=== PATIENT | male | born 1930 | race Caucasian/White ===

== ENCOUNTER 2019-02-11 09:43 | Inpatient (IN) | payer MEDICARE, BC ==
[2019-02-11] MEDS ORDERED: SODIUM CHLORIDE 0.9% 500 ML 500 ML IV STA (10:13)
--- NOTE | 2019-02-11 10:16 | ED ---
General Adult HPI - General Chief complaint: Wound/Laceration Stated complaint: wound care Time Seen by Provider: 02/11/19 10:05 Source: patient, family, EMS Mode of arrival: EMS Limitations: physical limitation - History of Present Illness Initial comments: Patient presents with generalized weakness. His states that he has been getting especially weak over the last couple days. He is able to walk anymore. She cannot take care of him. He has been having altered mental status. Nothing makes his symptoms better or worse. He has taken no specific medication to help with the symptoms. He has had no sick contacts or travel. - Related Data Home Medications Medication Instructions Recorded Confirmed Ezetimibe [Zetia] 10 mg PO DAILY 06/11/15 06/11/15 Ibuprofen [Motrin] 800 mg PO TID PRN 06/11/15 06/11/15 Levothyroxine Sodium [Synthroid] 75 mcg PO DAILY 06/11/15 06/11/15 Multivitamins, Thera [Multivitamin 1 tab PO DAILY 06/11/15 06/11/15 (formulary)] Previous Rx's Medication Instructions Recorded Meclizine [Antivert] 12.5 mg PO QID PRN #90 tab 06/14/15 Allergies Allergy/AdvReac Type Severity Reaction Status Date / Time No Known Allergies Allergy Verified 02/11/19 09:59 Review of Systems ROS Statement: Those systems with pertinent positive or pertinent negative responses have been documented in the HPI. ROS Other: All systems not noted in ROS Statement are negative. Past Medical History Past Medical History: Chest Pain / Angina, COPD, GERD/Reflux, Hyperlipidemia, Osteoarthritis (OA), Pneumonia, Thyroid Disorder Additional Past Medical History / Comment(s): tinnitus rt ear,constipation, broken nose in past. pt is dutch,thick accent.stated able to read and write but korean reading/writing not so good,able to do some. History of Any Multi-Drug Resistant Organisms: None Reported Past Surgical History: Orthopedic Surgery Additional Past Surgical History / Comment(s): hydrocele, lt knee arthroscopic, benign tumor removed from back, cyst removed lt foot Past Anesthesia/Blood Transfusion Reactions: No Reported Reaction Past Psychological History: No Psychological Hx Reported Smoking Status: Never smoker Past Alcohol Use History: Rare Past Drug Use History: None Reported - Past Family History Father History Unknown: Yes Mother History Unknown: Yes General Exam Limitations: altered mental status, physical limitation General appearance: lethargic Head exam: Present: atraumatic Eye exam: Present: normal appearance Pupils: Present: normal accommodation ENT exam: Present: normal exam Neck exam: Present: normal inspection Respiratory exam: Present: normal lung sounds bilaterally Cardiovascular Exam: Present: systolic murmur GI/Abdominal exam: Present: soft. Absent: tenderness Extremities exam: Present: normal inspection. Absent: tenderness Back exam: Absent: tenderness Neurological exam: Present: alert Psychiatric exam: Present: depressed Skin exam: Present: warm, other (There is no abnormal growth on the right shoulder) Course Vital Signs 02/11/19 09:50 Temperature 98.0 F Pulse Rate 85 Respiratory 18 Rate Blood Pressure 129/69 O2 Sat by Pulse 96 Oximetry EKG Findings - EKG Comments: EKG Findings:: Twelve-lead EKG shows ventricular rate 93 bpm, normal OH interval, there is a right bundle branch block, there are no ST elevation or depression, interpreted by me as normal sinus rhythm. Medical Decision Making - Medical Decision Making Patient has a multifocal pneumonia on chest x-ray. I ordered IV antibiotics. Patient will be admitted to the hospital. - Lab Data Result diagrams: 02/11/19 10:45 02/11/19 10:45 Lab Results 02/11/19 02/11/19 02/11/19 Range/Units 10:45 10:45 10:45 WBC 10.3 (3.8-10.6) k/uL RBC 4.34 (4.30-5.90) m/uL Hgb 11.3 L (13.0-17.5) gm/dL Hct 35.4 L (39.0-53.0) % MCV 81.6 (80.0-100.0) fL MCH 26.0 (25.0-35.0) pg MCHC 31.8 (31.0-37.0) g/dL RDW 15.5 (11.5-15.5) % Plt Count 270 (150-450) k/uL Neutrophils % 75 % Lymphocytes % 13 % Monocytes % 6 % Eosinophils % 3 % Basophils % 0 % Neutrophils # 7.7 (1.3-7.7) k/uL Lymphocytes # 1.4 (1.0-4.8) k/uL Monocytes # 0.6 (0-1.0) k/uL Eosinophils # 0.4 (0-0.7) k/uL Basophils # 0.0 (0-0.2) k/uL Hypochromasia Slight PT (9.0-12.0) sec INR (<1.2) Sodium 141 (137-145) mmol/L Potassium 3.4 L (3.5-5.1) mmol/L Chloride 103 (98-107) mmol/L Carbon Dioxide 28 (22-30) mmol/L Anion Gap 10 mmol/L BUN 29 H (9-20) mg/dL Creatinine 0.97 (0.66-1.25) mg/dL Est GFR (CKD-EPI)AfAm 81 (>60 ml/min/1.73 sqM) Est GFR (CKD-EPI)NonAf 70 (>60 ml/min/1.73 sqM) Glucose 95 (74-99) mg/dL Plasma Lactic Acid Quincy 2.9 H* (0.7-2.0) mmol/L Calcium 11.1 H (8.4-10.2) mg/dL Total Bilirubin 1.1 (0.2-1.3) mg/dL AST 40 (17-59) U/L ALT 23 (21-72) U/L Alkaline Phosphatase 96 (38-126) U/L Ammonia 10 (<30) umol/L Creatine Kinase 39 L (55-170) U/L Total Protein 6.7 (6.3-8.2) g/dL Albumin 3.2 L (3.5-5.0) g/dL 02/11/19 Range/Units 10:45 WBC (3.8-10.6) k/uL RBC (4.30-5.90) m/uL Hgb (13.0-17.5) gm/dL Hct (39.0-53.0) % MCV (80.0-100.0) fL MCH (25.0-35.0) pg MCHC (31.0-37.0) g/dL RDW (11.5-15.5) % Plt Count (150-450) k/uL Neutrophils % % Lymphocytes % % Monocytes % % Eosinophils % % Basophils % % Neutrophils # (1.3-7.7) k/uL Lymphocytes # (1.0-4.8) k/uL Monocytes # (0-1.0) k/uL Eosinophils # (0-0.7) k/uL Basophils # (0-0.2) k/uL Hypochromasia PT 11.6 (9.0-12.0) sec INR 1.1 (<1.2) Sodium (137-145) mmol/L Potassium (3.5-5.1) mmol/L Chloride (98-107) mmol/L Carbon Dioxide (22-30) mmol/L Anion Gap mmol/L BUN (9-20) mg/dL Creatinine (0.66-1.25) mg/dL Est GFR (CKD-EPI)AfAm (>60 ml/min/1.73 sqM) Est GFR (CKD-EPI)NonAf (>60 ml/min/1.73 sqM) Glucose (74-99) mg/dL Plasma Lactic Acid Quincy (0.7-2.0) mmol/L Calcium (8.4-10.2) mg/dL Total Bilirubin (0.2-1.3) mg/dL AST (17-59) U/L ALT (21-72) U/L Alkaline Phosphatase (38-126) U/L Ammonia (<30) umol/L Creatine Kinase (55-170) U/L Total Protein (6.3-8.2) g/dL Albumin (3.5-5.0) g/dL Disposition Clinical Impression: Weakness, Pneumonia Disposition: ADMITTED IP TO THIS [facility] Condition: Serious Is patient prescribed a controlled substance at d/c from ED?: No Referrals: Ravinder Davis MD [Primary Care Provider] - 1-2 days
--- NOTE | 2019-02-11 11:14 | CT ---
EXAMINATION TYPE: CT brain wo con DATE OF EXAM: 02/11/2019 COMPARISON: 06/11/2015 HISTORY: Weakness and fatigue CT DLP: 1129.4 mGycm Automated exposure control for dose reduction was used. FINDINGS: There is no acute intracranial hemorrhage, mass effect, or midline shift identified. Generalized mild to moderate degenerative change noted. Intracranial atherosclerotic changes are noted. There is low- attenuation in the white matter bilaterally which is nonspecific. Changes of chronic sinusitis noted. Partially empty sella turcica. IMPRESSION: No acute intracranial hemorrhage, mass effect, or midline shift is seen.
[2019-02-11 11:26] LABS: Basophils % (A) 0 %; Eosinophils # (A) 0.4 k/uL (0-0.7); Eosinophils % (A) 3 %; HCT 35.4 % (39.0-53.0); HGB 11.3 gm/dL (13.0-17.5); Hypochromasia Slight; Lymphocytes # (A) 1.4 k/uL (1.0-4.8); Lymphocytes % (A) 13 %; MCHC 31.8 g/dL (31.0-37.0); MCV 81.6 fL (80.0-100.0); Mean Platelet Volume 8.4; Monocytes # (A) 0.6 k/uL (0-1.0); Monocytes % (A) 6 %; Neutrophils # (A) 7.7 k/uL (1.3-7.7); Neutrophils % (A) 75 %; Platelet Count 270 k/uL (150-450); RBC 4.34 m/uL (4.30-5.90); RDW 15.5 % (11.5-15.5); WBC 10.3 k/uL (3.8-10.6)
[2019-02-11 11:32] LABS: Albumin 3.2 g/dL (3.5-5.0); Calcium 11.1 mg/dL (8.4-10.2); Potassium 3.4 mmol/L (3.5-5.1); Total Bilirubin 1.1 mg/dL (0.2-1.3); Total Protein 6.7 g/dL (6.3-8.2)
--- NOTE | 2019-02-11 11:34 | XR ---
EXAMINATION TYPE: XR chest 1V portable DATE OF EXAM: 02/11/2019 COMPARISON: 06/11/2015 HISTORY: Shortness of breath TECHNIQUE: Single frontal view of the chest is obtained. FINDINGS: New large area of consolidation left upper lobe. By basilar consolidation small effusion. No pneumothorax. Arthropathy of the shoulders. IMPRESSION: Bibasilar infiltrate and small effusion with large area of consolidation left upper lobe . Correlate for pneumonia. Underlying neoplasm not excluded
[2019-02-11 11:35] LABS: Lactic Acid, Venous 2.9 mmol/L (0.7-2.0)
[2019-02-11] MEDS ORDERED: AZITHROMYCIN 500 MG in SODIUM CHLORIDE 0.9% 250 ML IVPB STA (11:50)
[2019-02-11 11:55] LABS: INR 1.1 (<1.2); Prothrombin Time 11.6 sec (9.0-12.0)
[2019-02-11] MEDS ORDERED: DOCUSATE 100 MG CAP PO PRN (12:04)
[2019-02-11] MEDS ORDERED: NALOXONE 0.4 MG/ML 1 ML VIAL IV PRN (12:04)
[2019-02-11] MEDS ORDERED: ONDANSETRON 4 MG/2 ML VIAL IVP PRN (12:04)
[2019-02-11] MEDS ORDERED: MAG HYDROX/AL HYDROX/SIMETH 30 ML CUP PO PRN (12:04)
[2019-02-11] MEDS ORDERED: TEMAZEPAM 15 MG CAP PO PRN (12:04)
[2019-02-11] MEDS ORDERED: traMADol 50 MG TAB PO PRN (12:04)
[2019-02-11] MEDS ORDERED: MECLIZINE 12.5 MG TAB PO PRN (12:05)
[2019-02-11] MEDS ORDERED: IPRATROPIUM-ALBUTEROL 3 ML NEB INHALATION PRN (12:35)
[2019-02-11] MEDS ORDERED: Potassium Replacement Protocol 1 EACH MISC MISCELLANE PRN (12:36)
--- NOTE | 2019-02-11 12:59 | P.HPIM ---
History of Present Illness H&P Date: 02/11/19 Chief Complaint: Increased weakness This is an 88-year-old male patient who presented to the hospital with complaints of generalized weakness with increased altered mental status changes. Patient does report he's had a cough over the past few days patient is a poor historian. No family at bedside. History obtained from records. Patient does have past medical history of chest pain, COPD, GERD, hyperlipidemia, osteoarthritis, pneumonia thyroid disorder. Patient also has abnormal growths to right shoulder with drainage. Patient reports he's had this for [address] completed showing no acute intracranial hemorrhage, mass effect or midline shift seen. Chest x-ray completed showing bibasilar infiltrate and small effusion with large area of consolidation left upper lobe. Correlate for pneumonia underlying neoplasm not excluded. Patient started on Rocephin and azithromycin for pneumonia. Sputum culture ordered. Lactic acid elevated at 2.9. At this time patient is resting comfortably in bed. Patient denies chest pain or shortness of breath. Patient denies nausea vomiting or diarrhea. Patient denies any urinary burning or frequency Review of Systems Please for HPI otherwise unremarkable Past Medical History Past Medical History: Chest Pain / Angina, COPD, GERD/Reflux, Hyperlipidemia, Osteoarthritis (OA), Pneumonia, Thyroid Disorder Additional Past Medical History / Comment(s): tinnitus rt ear,constipation, broken nose in past. pt is indian,thick accent.stated able to read and write but guinean reading/writing not so good,able to do some. History of Any Multi-Drug Resistant Organisms: None Reported Past Surgical History: Orthopedic Surgery Additional Past Surgical History / Comment(s): hydrocele, lt knee arthroscopic, benign tumor removed from back, cyst removed lt foot Past Anesthesia/Blood Transfusion Reactions: No Reported Reaction Past Psychological History: No Psychological Hx Reported Smoking Status: Never smoker Past Alcohol Use History: Rare Past Drug Use History: None Reported - Past Family History Father History Unknown: Yes Mother History Unknown: Yes Medications and Allergies Home Medications Medication Instructions Recorded Confirmed Type Ezetimibe [Zetia] 10 mg PO DAILY 06/11/15 02/11/19 History Levothyroxine Sodium [Synthroid] 75 mcg PO DAILY 06/11/15 02/11/19 History Allergies Allergy/AdvReac Type Severity Reaction Status Date / Time No Known Allergies Allergy Verified 02/11/19 12:11 Physical Exam Vitals: Vital Signs Temp Pulse Resp BP Pulse Ox 02/11/19 09:50 98.0 F 85 18 129/69 96 Intake and Output 02/10/19 02/11/19 02/11/19 22:59 06:59 14:59 Other: Weight 66.678 kg Head normocephalic Neck supple Lungs diminished bilaterally Heart regular rate and rhythm S1-S2, no rub or gallop Abdomen is soft nontender nondistended positive bowel sounds no hepatosplenomegaly Extremities no edema Neuro alert and orientated to 3 large ,abnormal growths noted to right shoulder with serosanguineous drainage Results CBC & Chem 7: 02/11/19 10:45 02/11/19 10:45 Labs: Abnormal Lab Results - Last 24 Hours (Table) 02/11/19 02/11/19 02/11/19 Range/Units 10:45 10:45 10:45 Hgb 11.3 L (13.0-17.5) gm/dL Hct 35.4 L (39.0-53.0) % Potassium 3.4 L (3.5-5.1) mmol/L BUN 29 H (9-20) mg/dL Plasma Lactic Acid Quincy 2.9 H* (0.7-2.0) mmol/L Calcium 11.1 H (8.4-10.2) mg/dL Creatine Kinase 39 L (55-170) U/L Troponin I (0.000-0.034) ng/mL Albumin 3.2 L (3.5-5.0) g/dL 02/11/19 Range/Units 10:45 Hgb (13.0-17.5) gm/dL Hct (39.0-53.0) % Potassium (3.5-5.1) mmol/L BUN (9-20) mg/dL Plasma Lactic Acid Quincy (0.7-2.0) mmol/L Calcium (8.4-10.2) mg/dL Creatine Kinase (55-170) U/L Troponin I 0.043 H* (0.000-0.034) ng/mL Albumin (3.5-5.0) g/dL Assessment and Plan Assessment: 1. Increased weakness and altered mental status likely secondary to pneumonia infection. Head CT completed showing no acute intracranial hemorrhage, mass effect or midline shift seen. Lactic acid 2. 9 repeat ordered per protocol 2. Left upper lobe pneumonia. Chest x-ray completed showing bibasilar infiltrate and small effusion with large area of consolidation left upper lobe. Correlate for pneumonia. Underlying neoplasm not excluded. Sputum culture ordered. Patient started on azithromycin and Rocephin. Pulmonary service is consulted 3. Large growth noted to right shoulder with drainage. Patient reports he's had this for 3 years 4. Hypokalemia. Potassium 3.4 replacement protocol. 5. History of COPD 6. History of angina 7. History of hyperlipidemia. Statin resumed 8. History of hypothyroidism. Continue Synthroid. TSH level will be ordered 9. History of tinnitus DVT prophylaxis heparin. GI prophylaxis Pepcid Time with Patient: Greater than 30 (Greater than 60% of the total time spent in counseling and coordination of care. I performed an examination of the patient and discussed their management with the Nurse Practitioner. I have reviewed the Nurse Practitioner's notes and agree with the documented findings and plan of care)
[2019-02-11] MEDS: IPRATROPIUM-ALBUTEROL 3 ML NEB INHALATION SCH ×2 (16:23→21:18)
[2019-02-11] MEDS: POTASSIUM CHLORIDE ER 20 MEQ TAB.ER PO SCH (20:56)
[2019-02-11] MEDS: HEPARIN SODIUM,PORCINE 5,000 UNIT/ML 1 ML VIAL SQ SCH (21:02)
[2019-02-11 22:00] LABS: Appearance,Urine Clear (Clear); Bilirubin,Urine Negative (Negative); Blood,Urine Small (Negative); Color,Urine Yellow; Glucose,Urine (UA) Negative (Negative); Ketones,Urine 1+ (Negative); Leukocyte Esterase,Urine Negative (Negative); Mucus,Urine Occasional /hpf; Nitrite,Urine Negative (Negative); PH, Urine 5.5 (5.0-8.0); Protein,Urine Trace (Negative); RBC,Urine 20 /hpf (0-5); Specific Gravity,Urine 1.019 (1.001-1.035); Squamous Epithelial Cell,Urine <1 /hpf (0-4); Urobilinogen,Urine <2.0 mg/dL (<2.0); WBC,Urine 3 /hpf (0-5)
--- NOTE | 2019-02-12 00:43 | CONS ---
CONSULTATION DATE OF SERVICE: 02/11/2019. REASON FOR FOLLOWUP: Pneumonia. HISTORY OF PRESENT ILLNESS: The patient is an 88-year-old male who has been brought into the ER by the with complaint of generalized weakness. The patient's mentioned the patient becoming weak for the last few days as the patient is unable to walk anymore and she is unable to take care of him. The patient also has some mental status changes and confusion. The patient did have a wound on his right shoulder area. However the patient is not sure or able to tell me exactly when it started, but denies significant pain to that area. The patient denies having any fever or any chills. No nausea, no vomiting. No abdominal pain or any diarrhea. The patient himself is not a very good historian. REVIEW OF SYSTEMS: Positive points have been mentioned in HPI. Rest of the systems have been negative. PAST MEDICAL HISTORY: Gastroesophageal reflux disease, hyperlipidemia, osteoarthritis, pneumonia, hypothyroidism. PAST SURGICAL HISTORY: Left knee arthroscopy, benign tumor removed from the back, cyst removed from the left foot and hydrocele. SOCIAL HISTORY: The patient is currently and lives with his . No history of smoking, drinking, or drug use. FAMILY HISTORY: No pertinent findings noticed. ALLERGIES: No known drug allergies. MEDICATIONS: The patient is currently on DuoNeb, Zithromax, Rocephin, Colace, Zetia, heparin, Synthroid, and Antivert, morphine, Narcan, Zofran, Restoril and Ultram. PHYSICAL EXAMINATION: Blood pressure 129/77 with a pulse of 105, temperature 98.1. He is 97% on 2 L nasal cannula. General description is an elderly male lying in bed in no distress. No tachypnea or accessory muscles for respiration use. HEENT: Examination shows no pallor or scleral icterus. Oral mucosal membranes dry. thrush. Neck: Trachea central. Lungs unlabored breathing with decreased breath sounds in the bases. No wheeze. Heart S1, S2. Regular rate and rhythm. ABDOMEN: Soft. No tenderness. EXTREMITIES: No edema of the feet. Examination of skin right shoulder area did have a growth irregular. No bleeding was noticed or swelling redness or any foul-smelling drainage. Neurological: Patient is awake, alert, oriented times three. Mood and affect normal. LAB: BUN of 29, creatinine 0.97. Potassium 3.4, lactate is 2.9. Liver enzymes are normal. Hemoglobin 11.3, white count 10.3. Urine has been negative. Chest x-ray that is reported with bibasilar infiltrate with small effusion. IMPRESSION: 1. Chest x-ray reported to be abnormal with pneumonia clinically not behaving as such, not entirely excluded. 2. Patient with right upper arm and shoulder area skin lesion with a fungating wound, highly suspicious for malignancy. PLAN: 1. We will try to obtain sputum for Gram stain and culture. 2. Recommend general surgery for evaluation for biopsy of the lesion to rule out malignancy. Local care with dry Aquacel Silver dressing to be changed q.48 hours. 3. and Zithromax. 4. We will follow up on clinical condition and further adjust medication if needed. Thank you for this consultation. Will follow this patient along with you. MMODL / IJN: [id number] /
[2019-02-12 06:04] LABS: Basophils % (A) 0 %; Eosinophils # (A) 0.4 k/uL (0-0.7); Eosinophils % (A) 4 %; HCT 34.1 % (39.0-53.0); HGB 10.7 gm/dL (13.0-17.5); Hypochromasia Slight; Lymphocytes # (A) 1.4 k/uL (1.0-4.8); Lymphocytes % (A) 13 %; MCH 25.9 pg (25.0-35.0); MCHC 31.4 g/dL (31.0-37.0); MCV 82.5 fL (80.0-100.0); Mean Platelet Volume 7.7; Monocytes # (A) 0.5 k/uL (0-1.0); Monocytes % (A) 5 %; Neutrophils % (A) 76 %; Platelet Count 252 k/uL (150-450); RBC 4.14 m/uL (4.30-5.90); RDW 15.7 % (11.5-15.5); WBC 10.6 k/uL (3.8-10.6)
[2019-02-12 06:19] LABS: ALT 20 U/L (21-72); AST 38 U/L (17-59); African American GFR (CKD) >90 (>60 ml/min/1.73 sqM); Alkaline Phosphatase 82 U/L (38-126); Anion Gap 8 mmol/L; Blood Urea Nitrogen 22 mg/dL (9-20); Calcium 10.3 mg/dL (8.4-10.2); Carbon Dioxide 26 mmol/L (22-30); Chloride 105 mmol/L (98-107); Glucose 84 mg/dL (74-99); Non-African American GFR(CKD) 80 (>60 ml/min/1.73 sqM); Potassium 3.2 mmol/L (3.5-5.1); Sodium 139 mmol/L (137-145); Total Bilirubin 0.9 mg/dL (0.2-1.3); Total Protein 6.4 g/dL (6.3-8.2)
[2019-02-12] MEDS: LEVOTHYROXINE 75 MCG TAB PO SCH (06:26)
[2019-02-12] MEDS: IPRATROPIUM-ALBUTEROL 3 ML NEB INHALATION SCH ×4 (07:26→19:38)
[2019-02-12] MEDS ORDERED: AZITHROMYCIN 500 MG in SODIUM CHLORIDE 0.9% 250 ML IVPB SCH (09:00)
[2019-02-12] MEDS: MULTIVITAMINS, THERA 1 EACH TAB PO SCH (09:14)
[2019-02-12] MEDS: FAMOTIDINE 20 MG TAB PO SCH (09:14)
[2019-02-12] MEDS: HEPARIN SODIUM,PORCINE 5,000 UNIT/ML 1 ML VIAL SQ SCH ×2 (09:14→23:00)
[2019-02-12] MEDS ORDERED: RX INFO: IV CONTRAST WAS GIVEN 1 EACH MISC MISCELLANE PRN (10:17)
[2019-02-12] MEDS ORDERED: Potassium Replacement Protocol 1 EACH MISC MISCELLANE PRN (10:37)
[2019-02-12] MEDS: EZETIMIBE 10 MG TAB PO SCH (11:27)
[2019-02-12] MEDS: POTASSIUM CHLORIDE ER 20 MEQ TAB.ER PO SCH ×2 (11:29→13:20)
--- NOTE | 2019-02-12 12:20 | CT ---
EXAMINATION TYPE: CT chest w con DATE OF EXAM: 02/12/2019 COMPARISON: 08/08/2010 CT and x-ray of 02/11/2019 HISTORY: unproductive cough, history of mass CT DLP: 407.2 mGycm. Automated Exposure Control for Dose Reduction was Utilized. TECHNIQUE: CT scan of the thorax is performed following with IV Contrast, patient injected with 100 mL of Isovue 300. FINDINGS: LUNGS: Masslike consolidation at the left lung base on axial imaging appears as a pulmonary mass on i mage 34 measuring 3.1 x 3.1 cm, however cholelithiasis with hemidiaphragm on coronal imaging. Moderat e left pleural effusion and left basilar atelectasis obscuring the left lung. Minimal right basilar s ubsegmental atelectasis is seen. MEDIASTINUM: There are no greater than 1 cm hilar or mediastinal lymph nodes. No pericardial effusi on is seen. OTHER: There is a large dominant splenic mass measuring approximately 10.8 x 7.2 cm and second hypoat tenuated complex mass similar in appearance measuring 3.6 cm. There is adjacent adenopathy in the upp er abdomen encasing vasculature abutting the diaphragmatic stacy on image 48 measuring 3.6 x 4.9 cm, a nd the retroperitoneum on image 52 measuring 4.5 x 1.7 cm abutting the colon. Adenopathy is also seen along the left splenic artery on image 51 measuring 1.1 cm in short axis and in the aortocaval regio n measuring 1.3 cm in short axis on image 55. Mesenteric implant versus adenopathy posterior to the s pleen on image 46 measures 2.2 cm. Abnormal course of the colon situated between the spleen and left kidney. Healed right rib fracture of the anterior margin of rib 5 is adjacent soft tissue density and could b e pathologic. Compression deformity of T12 is vertebral body height loss of approximately 40%. Mild c ompression deformity of the T7 vertebral body is also seen. No retropulsion. Diffuse osseous deminera lization is present. Partially visualized cystic lesions of the left kidney. There is abnormal adenopathy in the right axilla around the axillary vessels and more inferiorly valorie g the chest wall. Largest conglomeration measures up to 4.0 x 2.5 cm on image 22. Nonaggressive lipomatous lesion seen of the paraspinal musculature near T11 on the right. Small hiata l hernia. Adenopathy is also seen along the left hemidiaphragm on coronal image 52 with 3 enlarged lymph nodes measuring up to 2.4 cm in craniocaudal dimension and marked on axial image 45. IMPRESSION: 1. Large aggressive-appearing splenic lesions and extensive focal upper abdominal retroperitoneal celestina nopathy. Right axillary adenopathy is also seen, adenopathy along the left hemidiaphragm, as well as masslike consolidation of the left lung base and rib fracture of the anterior margin of rib 5 on the right with soft tissue density concerning for pathologic fracture. Together findings may represent ly mphoma or multifocal metastasis from unknown primary. The safest target for biopsy would be the right inferior axillary adenopathy. 2. Moderate left pleural effusion and multifocal atelectasis. 3. Age-indeterminate thoracic compression deformities at T12 and T7. A Yellow level critical message alert has been initiated for Sudheer Oliveira via the [employer] Critical Results System on 02/12/2019 12:18 PM. This message alert has been sent to Sudheer Oliveira vi a the preferences provided by the clinician for the receipt of Radiology Critical Findings. Message I D [id number].
--- NOTE | 2019-02-12 13:26 | P.PN ---
Subjective Progress Note Date: 02/12/19 This is an 88-year-old male patient who presented to the hospital with complaints of generalized weakness with increased altered mental status changes. Patient does report he's had a cough over the past few days patient is a poor historian. No family at bedside. History obtained from records. Patient does have past medical history of chest pain, COPD, GERD, hyperlipidemia, osteoarthritis, pneumonia thyroid disorder. Patient also has abnormal growths to right shoulder with drainage. Patient reports he's had this for [address] completed showing no acute intracranial hemorrhage, mass effect or midline shift seen. Chest x-ray completed showing bibasilar infiltrate and small effusion with large area of consolidation left upper lobe. Correlate for pneumonia underlying neoplasm not excluded. Patient started on Rocephin and azithromycin for pneumonia. Sputum culture ordered. Lactic acid elevated at 2.9. At this time patient is resting comfortably in bed. Patient denies chest pain or shortness of breath. Patient denies nausea vomiting or diarrhea. Patient denies any urinary burning or frequency On 02/12/2019 patient is alert and oriented 2 confused at times resting comfo rtably bed is at bedside. Dr. cortes has been consulted for surgical consult in regards to right shoulder abscess for possible biopsy. CT of chest also ordered per pulmonary services. Per patient's requesting patient may be a DO NOT RESUSCITATE. Patient still having productive cough. Patient denies chest pain. Patient denies nausea vomiting or diarrhea. patient denies any urinary burning or frequency Objective - Vital Signs Vital signs: Vital Signs Temp 97.4 F L 02/12/19 08:00 Pulse 92 02/12/19 08:00 Resp 14 02/12/19 08:00 BP 137/63 02/12/19 08:00 Pulse Ox 93 L 02/12/19 08:00 Intake & Output 02/11/19 02/12/19 02/12/19 18:59 06:59 18:59 Intake Total 120 Output Total 150 250 400 Balance -150 -250 -280 Weight 66.678 kg 71 kg 71 kg Intake: Oral 120 Output: Urine 150 250 400 Other: Voiding Method Urinal Urinal # Voids 1 - Exam Head normocephalic Neck supple Lungs diminished bilaterally Heart regular rate and rhythm S1-S2, no rub or gallop Abdomen is soft nontender nondistended positive bowel sounds no hepatosplenomegaly Extremities no edema Neuro alert and orientated to 3 large ,abnormal growths noted to right shoulder with serosanguineous drainage - Labs CBC & Chem 7: 02/12/19 05:35 02/12/19 05:35 Labs: Abnormal Lab Results - Last 24 Hours (Table) 02/11/19 02/11/19 02/11/19 Range/Units 17:13 17:13 20:30 RBC (4.30-5.90) m/uL Hgb (13.0-17.5) gm/dL Hct (39.0-53.0) % RDW (11.5-15.5) % Neutrophils # (1.3-7.7) k/uL Potassium (3.5-5.1) mmol/L BUN (9-20) mg/dL Plasma Lactic Acid Quincy 2.9 H* (0.7-2.0) mmol/L Calcium (8.4-10.2) mg/dL ALT (21-72) U/L Troponin I 0.042 H* (0.000-0.034) ng/mL Albumin (3.5-5.0) g/dL Urine Protein Trace H (Negative) Urine Ketones 1+ H (Negative) Urine Blood Small H (Negative) Urine RBC 20 H (0-5) /hpf Urine Mucus Occasional H (None) /hpf 02/11/19 02/11/19 02/12/19 Range/Units 21:20 22:50 01:24 RBC (4.30-5.90) m/uL Hgb (13.0-17.5) gm/dL Hct (39.0-53.0) % RDW (11.5-15.5) % Neutrophils # (1.3-7.7) k/uL Potassium (3.5-5.1) mmol/L BUN (9-20) mg/dL Plasma Lactic Acid Quincy 2.7 H* 2.6 H* (0.7-2.0) mmol/L Calcium (8.4-10.2) mg/dL ALT (21-72) U/L Troponin I 0.043 H* (0.000-0.034) ng/mL Albumin (3.5-5.0) g/dL Urine Protein (Negative) Urine Ketones (Negative) Urine Blood (Negative) Urine RBC (0-5) /hpf Urine Mucus (None) /hpf 02/12/19 02/12/19 02/12/19 Range/Units 05:35 05:35 05:35 RBC 4.14 L (4.30-5.90) m/uL Hgb 10.7 L (13.0-17.5) gm/dL Hct 34.1 L (39.0-53.0) % RDW 15.7 H (11.5-15.5) % Neutrophils # 8.0 H (1.3-7.7) k/uL Potassium 3.2 L (3.5-5.1) mmol/L BUN 22 H (9-20) mg/dL Plasma Lactic Acid Quincy 2.6 H* (0.7-2.0) mmol/L Calcium 10.3 H (8.4-10.2) mg/dL ALT 20 L (21-72) U/L Troponin I (0.000-0.034) ng/mL Albumin 3.0 L (3.5-5.0) g/dL Urine Protein (Negative) Urine Ketones (Negative) Urine Blood (Negative) Urine RBC (0-5) /hpf Urine Mucus (None) /hpf 02/12/19 Range/Units 09:26 RBC (4.30-5.90) m/uL Hgb (13.0-17.5) gm/dL Hct (39.0-53.0) % RDW (11.5-15.5) % Neutrophils # (1.3-7.7) k/uL Potassium (3.5-5.1) mmol/L BUN (9-20) mg/dL Plasma Lactic Acid Quincy 2.5 H* (0.7-2.0) mmol/L Calcium (8.4-10.2) mg/dL ALT (21-72) U/L Troponin I (0.000-0.034) ng/mL Albumin (3.5-5.0) g/dL Urine Protein (Negative) Urine Ketones (Negative) Urine Blood (Negative) Urine RBC (0-5) /hpf Urine Mucus (None) /hpf Assessment and Plan Assessment: 1. Increased weakness and altered mental status likely secondary to pneumonia infection. Head CT completed showing no acute intracranial hemorrhage, mass effect or midline shift seen. Lactic acid 2. 9 repeat ordered per protocol 2. Left upper lobe pneumonia with elevated lactic acid sepsis present on admission. Chest x-ray completed showing bibasilar infiltrate and small effusion with large area of consolidation left upper lobe. Correlate for pneumonia. Underlying neoplasm not excluded. Sputum culture ordered. Patient started on azithromycin and Rocephin. Pulmonary service is consulted. CT of chest has been ordered per pulmonary services 3. Large growth noted to right shoulder with drainage. Per infectious disease right upper arm and shoulder area skin lesion with fungating wound highly suspicious for malignancy. Cultures have been ordered general surgeon consult for possible biopsy to rule out malignancy. Local wound care with Aquacel silver dressing to be changed every 48 hours. 4. Hypokalemia. Potassium 3.4 replacement protocol. 5. History of COPD 6. History of angina 7. History of hyperlipidemia. Statin resumed 8. History of hypothyroidism. Continue Synthroid. TSH level 2.490 9. History of tinnitus 10. 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 DVT prophylaxis heparin. GI prophylaxis Pepcid Pulmonary and infectious disease service following Azithromycin and Rocephin for IV antibiotics General surgeon consult for biopsy of right shoulder wound CT chest ordered to rule out malignancy per pulmonary I performed an examination of the patient and discussed their management with the Nurse Practitioner. I have reviewed the Nurse Practitioner's notes and agree with the documented findings and plan of care
--- NOTE | 2019-02-12 16:02 | CONS ---
CONSULTATION PULMONARY/CRITICAL CARE CONSULTATION DATE OF SERVICE: February 12, 2019 REASON FOR CONSULTATION: Abnormal chest x-ray. HISTORY OF PRESENT ILLNESS: This is an 80-year-old [place] male who is a very poor historian. He does not speak a lot of Slovenian. Difficult to understand him. He apparently presents to the emergency room via EMS for generalized weakness. Apparently had been going on for a couple days and getting worse. He is unable to walk anymore. In addition, apparently the patient does have mental status changes. It is very hard to get any additional history from this patient. When asked about things such as chest pain, chest discomfort, cough, wheezing, shortness of breath, phlegm production, hemoptysis, nausea, vomiting, diarrhea, etc., the patient really is not able to answer those questions and tell us what is going on. The patient did have a chest x-ray which suggested either infiltrate or effusion in the left lung. In addition, he has a big fungating mass on his right shoulder. This likely represents some sort of malignancy. Because of his lesion and his previous smoking history, we ordered a chest CT which suggested a large aggressive appearing splenic lesions and extensive upper abdominal and retroperitoneal adenopathy. Also, there is right axillary adenopathy and adenopathy along the left hemidiaphragm as well as a masslike consolidation of the left lung base and rib fracture of the anterior margins #5 on the right with soft tissue density concerning for pathologic fracture. This could represent lymphoma or multifocal metastasis from an unknown primary. There is a moderate left-sided pleural effusion and multifocal atelectasis. There are deformities at T12 and T7 as well. Again, the patient cannot give any additional pertinent history. Brain CT in the emergency room showed no acute intracranial abnormality. Chest x-ray initially on the showed some bibasilar infiltrates, and a large area consolidation or effusion in the left lung. HOME MEDICATIONS: Include Zetia, Motrin, levothyroxine, and multivitamins. He has also been on Antivert. ALLERGIES: Denied. MEDICAL HISTORY: Chest pain/angina, COPD from previous heavy tobacco use, GERD, hyperlipidemia, DJD, pneumonia, and, hypothyroidism. He also has a history of ringing in the right ear, chronic constipation, and a broken nose. 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 SOCIAL HISTORY: Positive for previous heavy tobacco use. Smoked for at least 40-50 years. Does not smoke currently. Alcohol use was rare. No illicit drug use. FAMILY HISTORY: Unknown. Again, the patient is not able to supply any additional history. Poor historical information. REVIEW OF SYSTEMS: CONSTITUTIONAL weakness. NEUROLOGIC negative. HEENT negative. CARDIOVASCULAR negative. PULMONARY negative. GI negative. negative. RHEUMATOLOGIC negative. IMMUNOLOGIC negative. ENDOCRINOLOGIC negative. DERMATOLOGIC negative. PHYSICAL EXAMINATION: VITAL SIGNS: Current vital signs are reviewed. Temperature is 97.4. Heart rate 90, respiratory rate 18, blood pressure 137/63, mean 87, 2 L saturation 93%. GENERAL: Appears in no acute distress. HEENT examination is grossly unremarkable. Nasal O2 in place. NECK: Supple. Full range of motion. No adenopathy. Neck veins are flat. CARDIOVASCULAR examination reveals regular rhythm and rate. Heart rate 88 beats per minute. Heart sounds are distant. S1, S2 normal. LUNGS: Reveal coarse rhonchi. Breath sounds are diminished throughout. No wheezes. ABDOMEN: Soft. Bowel sounds are heard. EXTREMITIES are intact. No cyanosis, clubbing, or edema. SKIN: Without rash. NEUROLOGIC: Examination is difficult to assess. He does move all [address] as mentioned shows no acute abnormality. IMAGING PROCEDURE: Chest x-ray shows infiltrate in the left mid lung field. Also, there is some consolidation or effusion in the left base. The right lung is mostly clear. There may be some atelectasis at the right lung base. Chest CT as mentioned above shows significant findings including a mass like lesion in the left base and some possible effusion. LAB DATA: Reviewed. White count 10.6, hemoglobin 10.7, hematocrit 34.1, platelet count 352,000. Sodium 139, potassium 3.2, chloride 105, CO2 26. Anion gap is 8. BUN and creatinine were 22 and 0.8. Lactic acid 2.6 and 2.5. Calcium 10.3, LDH 60, 100 and 39. Labs are reviewed. Microbiology is negative or pending. X-rays are reviewed. Medications are reviewed. He is on updrafts, and antibiotics in the form of Zithromax and Rocephin. ASSESSMENT: 1. Diffuse thoracic and extrathoracic adenopathy as well as a fungating mass in the right shoulder area, and a possible mass in the left lung base, rule out lymphoma versus metastatic carcinoma. 2. Rule out lung cancer. 3. Previous history of tobacco use. 4. Right axillary adenopathy, to be evaluated by Interventional Radiology for biopsy. 5. History of hyperlipidemia. 6. History of hypothyroidism. 7. History of chest pain/angina pectoris. 8. Chronic obstructive pulmonary disease. 9. Gastroesophageal reflux disease. 10.Osteoarthritis. 11.History of pneumonia. 12.Chronic constipation. 13.Right ear tinnitus. PLAN: The patient will have a referral to Interventional Radiology for possible biopsy of the right axillary nodes. In addition, the patient may benefit from bronchoscopy and/or thoracentesis. We will make sure that we do an ultrasound of the left chest to see if there is enough fluid to drain. Additional recommendations and suggestions are forthcoming. He is a NO CODE. Prognosis is poor. The fungating mass on the right shoulder is definitely suspicious for malignancy of some type. We will continue to follow. Antibiotics for now are fine. MMODL / IJN: [id number] / MTDD
--- NOTE | 2019-02-12 17:14 | US ---
EXAMINATION TYPE: US chest DATE OF EXAM: 02/12/2019 COMPARISON: NONE CLINICAL HISTORY: left pleural effusion. SOB TECHNIQUE: Departmental protocol for targeted ultrasound of the posterior lower Left EXAM MEASUREMENTS: Left Pleural Effusion pocket size: 3.3 cm Left skin surface to fluid distance: 3.5 cm Left side marked for possible thoracentesis outside the dept. Pulmonologists are able to review the images in the patient?s EMR. IMPRESSION: LEFT PLEURAL EFFUSION.
--- NOTE | 2019-02-12 19:31 | P.GSCN ---
History of Present Illness Consult date: 02/12/19 Reason for Consult: Right posterior shoulder mass History of present illness: 88-year-old male presents to the ER with generalized weakness. Patient poor historian. He was brought to the hospital by his who is not present for questioning. He apparently is unable to care for himself any longer. He is unable to walk. He has an obvious productive cough during my evaluation. He appears weak. He is not visibly short of breath.We were consulted after primary service identify a fungating mass involving the right posterior shoulder/upper back. Patient states this has been there for 3 years. He is not interested in any intervention and describes knowing individuals who had cancer treatment only to have their cancer progressed rapidly. He has already been seen by infectious disease, hospitalist service, pulmonary. CAT scan was performed which reveals left pulmonary effusion and possible mass, pathologic rib fracture, splenic lesions, retroperitoneal adenopathy, right axillary adenopathy. Pulmonary has already ordered right axillary lymph node biopsy and I believe plans are underway for tapping the patient's pleural fluid. The patient is currently no code. We were consulted to evaluate this fungating mass posterior shoulder. Review of Systems ROS unobtainable: due to mental status Past Medical History Past Medical History: Chest Pain / Angina, COPD, GERD/Reflux, Hyperlipidemia, Osteoarthritis (OA), Pneumonia, Thyroid Disorder Additional Past Medical History / Comment(s): Pt has mass R posterior upper back/shoulder for approximately 3 years and has chosen not to have it looked at by his physician, bronchitis, chronic back pain, vertigo, tinnitis R ear hypothyroid, constipation, UTI, constipation. 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 Past Anesthesia/Blood Transfusion Reactions: No Reported Reaction Smoking Status: Former smoker - Past Family History Father History Unknown: Yes Family Medical History: No Reported History Additional Family Medical History / Comment(s): Father was healthy and lived to be 83 yrs old. Mother History Unknown: Yes Family Medical History: No Reported History Additional Family Medical History / Comment(s): Mother was healthy and lived to be 95 yrs old. Medications and Allergies Home Medications Medication Instructions Recorded Confirmed Type Ezetimibe [Zetia] 10 mg PO DAILY 06/11/15 02/11/19 History Levothyroxine Sodium [Synthroid] 75 mcg PO DAILY 06/11/15 02/11/19 History Allergies Allergy/AdvReac Type Severity Reaction Status Date / Time No Known Allergies Allergy Verified 02/11/19 12:11 Surgical - Exam Vital Signs Temp Pulse Resp BP Pulse Ox 98.0 F 85 18 129/69 96 02/11/19 09:50 02/11/19 09:50 02/11/19 09:50 02/11/19 09:50 02/11/19 09:50 Physical exam: General: Elderly white male, productive cough, not short of breath, no distress, appears malnourished HEENT: Normocephalic, sclerae nonicteric Abdomen: Nontender, nondistended Extremities: No edema, Right axillary adenopathy palpable, 8 x 6 cm fungating mass involving the posterior right shoulder, nontender, serous drainage Neuro: Alert Results - Labs 02/12/19 05:35 02/12/19 05:35 Abnormal Lab Results - Last 24 Hours (Table) 02/11/19 02/11/19 02/11/19 Range/Units 20:30 21:20 22:50 RBC (4.30-5.90) m/uL Hgb (13.0-17.5) gm/dL Hct (39.0-53.0) % RDW (11.5-15.5) % Neutrophils # (1.3-7.7) k/uL Potassium (3.5-5.1) mmol/L BUN (9-20) mg/dL Plasma Lactic Acid Quincy 2.7 H* (0.7-2.0) mmol/L Calcium (8.4-10.2) mg/dL ALT (21-72) U/L Lactate Dehydrogenase (313-618) U/L Troponin I 0.043 H* (0.000-0.034) ng/mL Albumin (3.5-5.0) g/dL Urine Protein Trace H (Negative) Urine Ketones 1+ H (Negative) Urine Blood Small H (Negative) Urine RBC 20 H (0-5) /hpf Urine Mucus Occasional H (None) /hpf 02/12/19 02/12/19 02/12/19 Range/Units 01:24 05:26 05:35 RBC 4.14 L (4.30-5.90) m/uL Hgb 10.7 L (13.0-17.5) gm/dL Hct 34.1 L (39.0-53.0) % RDW 15.7 H (11.5-15.5) % Neutrophils # 8.0 H (1.3-7.7) k/uL Potassium (3.5-5.1) mmol/L BUN (9-20) mg/dL Plasma Lactic Acid Quincy 2.6 H* (0.7-2.0) mmol/L Calcium (8.4-10.2) mg/dL ALT (21-72) U/L Lactate Dehydrogenase 1639 H (313-618) U/L Troponin I (0.000-0.034) ng/mL Albumin (3.5-5.0) g/dL Urine Protein (Negative) Urine Ketones (Negative) Urine Blood (Negative) Urine RBC (0-5) /hpf Urine Mucus (None) /hpf 02/12/19 02/12/19 02/12/19 Range/Units 05:35 05:35 09:26 RBC (4.30-5.90) m/uL Hgb (13.0-17.5) gm/dL Hct (39.0-53.0) % RDW (11.5-15.5) % Neutrophils # (1.3-7.7) k/uL Potassium 3.2 L (3.5-5.1) mmol/L BUN 22 H (9-20) mg/dL Plasma Lactic Acid Quincy 2.6 H* 2.5 H* (0.7-2.0) mmol/L Calcium 10.3 H (8.4-10.2) mg/dL ALT 20 L (21-72) U/L Lactate Dehydrogenase (313-618) U/L Troponin I (0.000-0.034) ng/mL Albumin 3.0 L (3.5-5.0) g/dL Urine Protein (Negative) Urine Ketones (Negative) Urine Blood (Negative) Urine RBC (0-5) /hpf Urine Mucus (None) /hpf 02/12/19 Range/Units 13:37 RBC (4.30-5.90) m/uL Hgb (13.0-17.5) gm/dL Hct (39.0-53.0) % RDW (11.5-15.5) % Neutrophils # (1.3-7.7) k/uL Potassium (3.5-5.1) mmol/L BUN (9-20) mg/dL Plasma Lactic Acid Quincy 2.8 H* (0.7-2.0) mmol/L Calcium (8.4-10.2) mg/dL ALT (21-72) U/L Lactate Dehydrogenase (313-618) U/L Troponin I (0.000-0.034) ng/mL Albumin (3.5-5.0) g/dL Urine Protein (Negative) Urine Ketones (Negative) Urine Blood (Negative) Urine RBC (0-5) /hpf Urine Mucus (None) /hpf Microbiology - Last 24 Hours (Table) 02/11/19 12:30 Blood Culture - Preliminary Blood No Growth after 24 hours Diabetes panel 02/12/19 Range/Units 05:35 Sodium 139 (137-145) mmol/L Potassium 3.2 L (3.5-5.1) mmol/L Chloride 105 (98-107) mmol/L Carbon Dioxide 26 (22-30) mmol/L BUN 22 H (9-20) mg/dL Creatinine 0.80 (0.66-1.25) mg/dL Glucose 84 (74-99) mg/dL Calcium 10.3 H (8.4-10.2) mg/dL AST 38 (17-59) U/L ALT 20 L (21-72) U/L Alkaline Phosphatase 82 (38-126) U/L Total Protein 6.4 (6.3-8.2) g/dL Albumin 3.0 L (3.5-5.0) g/dL Calcium panel 02/12/19 Range/Units 05:35 Calcium 10.3 H (8.4-10.2) mg/dL Albumin 3.0 L (3.5-5.0) g/dL Pituitary panel 02/12/19 Range/Units 05:35 Sodium 139 (137-145) mmol/L Potassium 3.2 L (3.5-5.1) mmol/L Chloride 105 (98-107) mmol/L Carbon Dioxide 26 (22-30) mmol/L BUN 22 H (9-20) mg/dL Creatinine 0.80 (0.66-1.25) mg/dL Glucose 84 (74-99) mg/dL Calcium 10.3 H (8.4-10.2) mg/dL Adrenal panel 02/12/19 Range/Units 05:35 Sodium 139 (137-145) mmol/L Potassium 3.2 L (3.5-5.1) mmol/L Chloride 105 (98-107) mmol/L Carbon Dioxide 26 (22-30) mmol/L BUN 22 H (9-20) mg/dL Creatinine 0.80 (0.66-1.25) mg/dL Glucose 84 (74-99) mg/dL Calcium 10.3 H (8.4-10.2) mg/dL Total Bilirubin 0.9 (0.2-1.3) mg/dL AST 38 (17-59) U/L ALT 20 L (21-72) U/L Alkaline Phosphatase 82 (38-126) U/L Total Protein 6.4 (6.3-8.2) g/dL Albumin 3.0 L (3.5-5.0) g/dL Assessment and Plan (1) Shoulder mass Narrative/Plan: 88-year-old male with right shoulder mass highly suspicious for primary cutaneous malignancy or metastasis. Patient a poor surgical candidate. Biopsy of right axillary lymph node already ordered. Pleural effusion cytology would be potentially of some benefit as well. Recommend oncology evaluation. If needed bedside punch biopsy of this fungating lesion can be performed although the patient is currently refusing.We'll follow with you. Current Visit: Yes Status: Acute Code(s): R22.30 - LOCALIZED SWELLING, MASS AND LUMP, UNSPECIFIED UPPER LIMB SNOMED Code(s): 392639532
--- NOTE | 2019-02-13 05:10 | PN ---
PROGRESS NOTE DATE OF SERVICE: 02/12/2019 REASON FOR FOLLOWUP: Right shoulder wound/mass. INTERVAL HISTORY: The patient is currently afebrile. Patient has been breathing comfortably. Denies having any chest pain or cough. No nausea, no vomiting. No abdominal pain. No diarrhea. PHYSICAL EXAMINATION: Blood pressure is 162/76 with a pulse of 89, temperature is 97.5. He is 100% on 2 L nasal cannula. General description is an elderly male lying in bed in no distress. RESPIRATORY SYSTEM: Unlabored breathing. Decreased breath sounds at the bases. HEART: S1, S2. Regular rate and rhythm. ABDOMEN: Soft, no tenderness. Right shoulder did have fungating mass with no slough tissue or cellulitis. LABS: Hemoglobin is 10.7, white count 10.6. Blood culture has been negative. Sputum culture currently pending. CT chest has been suspicious for malignancy. DIAGNOSTIC IMPRESSION AND PLAN: Patient with right shoulder fungating mass, likely suspicious for a malignancy, possibly squamous cell carcinoma. Clinically doubt abscess or secondary cellulitis. Local care covered with a dry protective dressings, possible biopsies or care. Continue supportive care. MMODL / IJN: [id number] /
[2019-02-13 09:09] LABS: Basophils % (A) 0 %; Eosinophils # (A) 0.5 k/uL (0-0.7); Eosinophils % (A) 5 %; HCT 35.6 % (39.0-53.0); HGB 11.3 gm/dL (13.0-17.5); Hypochromasia Moderate; Lymphocytes # (A) 0.9 k/uL (1.0-4.8); Lymphocytes % (A) 10 %; MCH 26.3 pg (25.0-35.0); MCHC 31.8 g/dL (31.0-37.0); MCV 82.6 fL (80.0-100.0); Mean Platelet Volume 7.2; Monocytes # (A) 0.6 k/uL (0-1.0); Monocytes % (A) 6 %; Neutrophils # (A) 7.4 k/uL (1.3-7.7); Neutrophils % (A) 78 %; Platelet Count 247 k/uL (150-450); RBC 4.31 m/uL (4.30-5.90); RDW 15.8 % (11.5-15.5); WBC 9.5 k/uL (3.8-10.6)
[2019-02-13] MEDS: EZETIMIBE 10 MG TAB PO SCH ×2 (09:11→18:28)
[2019-02-13] MEDS: MULTIVITAMINS, THERA 1 EACH TAB PO SCH ×2 (09:11→18:28)
[2019-02-13] MEDS: AZITHROMYCIN 500 MG TAB PO SCH (09:11)
[2019-02-13] MEDS: FAMOTIDINE 20 MG TAB PO SCH ×2 (09:11→18:29)
[2019-02-13] MEDS: HEPARIN SODIUM,PORCINE 5,000 UNIT/ML 1 ML VIAL SQ SCH ×2 (09:12→20:55)
[2019-02-13 09:17] LABS: ALT 17 U/L (21-72); AST 41 U/L (17-59); African American GFR (CKD) >90 (>60 ml/min/1.73 sqM); Alkaline Phosphatase 83 U/L (38-126); Anion Gap 10 mmol/L; Blood Urea Nitrogen 17 mg/dL (9-20); Carbon Dioxide 26 mmol/L (22-30); Chloride 106 mmol/L (98-107); Glucose 92 mg/dL (74-99); Non-African American GFR(CKD) 79 (>60 ml/min/1.73 sqM); Potassium 3.1 mmol/L (3.5-5.1); Sodium 142 mmol/L (137-145); Total Bilirubin 0.8 mg/dL (0.2-1.3); Total Protein 6.4 g/dL (6.3-8.2)
[2019-02-13] MEDS: LEVOTHYROXINE 75 MCG TAB PO SCH (09:19)
[2019-02-13] MEDS: IPRATROPIUM-ALBUTEROL 3 ML NEB INHALATION SCH ×4 (09:32→21:48)
--- NOTE | 2019-02-13 12:01 | P.PN ---
<Angelina Bello Renato - Last Filed: 02/13/19 11:55> Subjective Progress Note Date: 02/13/19 CHIEF COMPLAINT: Right posterior shoulder mass HISTORY OF PRESENT ILLNESS: Patient examined this morning at the bedside. He is scheduled for lymph node biospy and thoracentesis today. He continues to refuse biopsy of right shoulder mass. Denies pain to mass. Denies nausea or vomiting. Tolerating diet. PHYSICAL EXAM: VITAL SIGNS: Reviewed. GENERAL: Well-developed in no acute distress. HEENT: No sclera icterus. Extraocular movements grossly intact. Moist buccal mucosa. Head is atraumatic, normocephalic. ABDOMEN: Soft. Nondistended. Nontender. NEUROLOGIC: Alert and oriented. Cranial nerves II through XII grossly intact. SKIN: 8 x 6 cm fungating mass to right posterior shoulder. Dressing intact with serous drainage. ASSESSMENT: 1. Right shoulder mass, suspicious for primary cutaneous malignancy or metastasis. PLAN: Patient scheduled for lymph node biospy and thoracentesis today Patient currently refusing biopsy of right shoulder mass. If patient changes his mind, bedside punch biopsy can be performed Nurse practitioner note has been reviewed by physician. Signing provider agrees with the documented findings, assessment, and plan of care. Objective - Vital Signs Vital signs: Vital Signs Temp 97.4 F L 02/13/19 08:00 Pulse 80 02/13/19 09:46 Resp 18 02/13/19 08:00 BP 136/72 02/13/19 08:00 Pulse Ox 95 02/13/19 08:00 Intake & Output 02/12/19 02/13/19 02/13/19 18:59 06:59 18:59 Intake Total 180 0 Output Total 650 650 Balance -470 -650 0 Weight 71 kg Intake: Oral 180 0 Output: Urine 650 650 Other: Voiding Method Urinal Urinal Urinal # Voids 1 1 - Labs CBC & Chem 7: 02/13/19 08:51 02/13/19 08:51 Labs: Abnormal Lab Results - Last 24 Hours (Table) 02/12/19 02/12/19 02/13/19 Range/Units 05:26 13:37 08:51 Hgb 11.3 L (13.0-17.5) gm/dL Hct 35.6 L (39.0-53.0) % RDW 15.8 H (11.5-15.5) % Lymphocytes # 0.9 L (1.0-4.8) k/uL Potassium (3.5-5.1) mmol/L Plasma Lactic Acid Quincy 2.8 H* (0.7-2.0) mmol/L Calcium (8.4-10.2) mg/dL ALT (21-72) U/L Lactate Dehydrogenase 1639 H (313-618) U/L Albumin (3.5-5.0) g/dL 02/13/19 Range/Units 08:51 Hgb (13.0-17.5) gm/dL Hct (39.0-53.0) % RDW (11.5-15.5) % Lymphocytes # (1.0-4.8) k/uL Potassium 3.1 L (3.5-5.1) mmol/L Plasma Lactic Acid Quincy (0.7-2.0) mmol/L Calcium 11.0 H (8.4-10.2) mg/dL ALT 17 L (21-72) U/L Lactate Dehydrogenase (313-618) U/L Albumin 3.0 L (3.5-5.0) g/dL Microbiology - Last 24 Hours (Table) 02/12/19 15:45 Gram Stain - Preliminary Sputum Sputum Culture - Preliminary 02/11/19 12:30 Blood Culture - Preliminary Blood No Growth after 24 hours <Roland Lacey - Last Filed: 02/13/19 18:23> Subjective As above. Await biopsy results. No open biopsy planned in the immediate future. Possible comfort measures per family discussions. Objective - Vital Signs Vital signs: Vital Signs Temp 97.5 F L 02/13/19 16:00 Pulse 92 02/13/19 16:00 Resp 18 02/13/19 16:00 BP 156/75 02/13/19 16:00 Pulse Ox 94 L 02/13/19 16:00 Intake & Output 02/12/19 02/13/19 02/13/19 18:59 06:59 18:59 Intake Total 180 0 Output Total 650 650 Balance -470 -650 0 Weight 71 kg Intake: Oral 180 0 Output: Urine 650 650 Other: Voiding Method Urinal Urinal Urinal # Voids 1 1 - Labs CBC & Chem 7: 02/13/19 08:51 02/13/19 08:51 Labs: Abnormal Lab Results - Last 24 Hours (Table) 02/13/19 02/13/19 Range/Units 08:51 08:51 Hgb 11.3 L (13.0-17.5) gm/dL Hct 35.6 L (39.0-53.0) % RDW 15.8 H (11.5-15.5) % Lymphocytes # 0.9 L (1.0-4.8) k/uL Potassium 3.1 L (3.5-5.1) mmol/L Calcium 11.0 H (8.4-10.2) mg/dL ALT 17 L (21-72) U/L Albumin 3.0 L (3.5-5.0) g/dL Microbiology - Last 24 Hours (Table) 02/12/19 15:45 Gram Stain - Preliminary Sputum Sputum Culture - Preliminary Gram Neg Bacilli 02/11/19 12:30 Blood Culture - Preliminary Blood No Growth after 48 hours Assessment and Plan (1) Shoulder mass Current Visit: Yes Status: Acute Code(s): R22.30 - LOCALIZED SWELLING, MASS AND LUMP, UNSPECIFIED UPPER LIMB SNOMED Code(s): 774279168
--- NOTE | 2019-02-13 14:29 | P.PN ---
Subjective Progress Note Date: 02/13/19 Principal diagnosis: Diffuse thoracic an extrathoracic adenopathy and the fungating mass on the right shoulder area with a possible mass in the left lung base rule out lymphoma versus metastatic carcinoma On 02/13/2019 patient seen in follow-up on selective care unit, he is resting in bed, he is awake and alert, not appear to be in any acute distress, today his son and his are at the bedside, and he states that the right shoulder mass was never biopsied because patient with never allow anybody to biopsy it in the past. But the and a son do want necessary testing done to establish a diagnosis in regards to patient's mass on his right shoulder, and multiple abn ormal findings seen on the CT chest, and adenopathy. Patient is DO NOT RESUSCITATE, he is currently on a combination of antibiotics, Zithromax and Rocephin, nebulized bronchodilators, when necessary pain medications. His had no fever or chills, he remains on 2 L of oxygen pulse ox is 95-96%. Hemo dynamically stable. It is labs have been reviewed, showing white blood cell of 9.5, hemoglobin of 11.3, renal profile and electrolytes are unremarkable with exception of potassium which is low at 3.1, has been replaced per protocol. We consulted interventional radiology in regards to right axillary lymph node biopsy, and general surgery was consulted in regards to right shoulder mass biopsy. Ultrasound of the chest was completed showing only 3.3 cm pleural effusion pocket on the left. No plans for thoracentesis at this time. Objective - Vital Signs Vital signs: Vital Signs Temp 97.4 F L 02/13/19 08:00 Pulse 88 02/13/19 12:00 Resp 18 02/13/19 12:00 BP 136/72 02/13/19 08:00 Pulse Ox 95 02/13/19 08:00 Intake & Output 02/12/19 02/13/19 02/13/19 18:59 06:59 18:59 Intake Total 180 0 Output Total 650 650 Balance -470 -650 0 Weight 71 kg Intake: Oral 180 0 Output: Urine 650 650 Other: Voiding Method Urinal Urinal Urinal # Voids 1 1 - Exam GENERAL EXAM: Alert, very pleasant, 88-year-old white male, who is a poor historian, 2 L of oxygen with the process of 95% comfortable in no apparent distress. HEAD: Normocephalic/atraumatic. EYES: Normal reaction of pupils, equal size. Conjunctiva pink, sclera white. NOSE: Clear with pink turbinates. THROAT: No erythema or exudates. NECK: No masses, no JVD, no thyroid enlargement, no adenopathy. CHEST: No chest wall deformity. Symmetrical expansion. LUNGS: Equal air entry with no crackles, wheeze, rhonchi or dullness. Diminished sounds bilaterally CVS: Regular rate and rhythm, normal S1 and S2, no gallops, no murmurs, no rubs ABDOMEN: Soft, nontender. No hepatosplenomegaly, normal bowel sounds, no guarding or rigidity. EXTREMITIES: No clubbing, no edema, no cyanosis, 2+ pulses and upper and lower extremities. MUSCULOSKELETAL: Muscle strength and tone normal. SPINE: No scoliosis or deformity SKIN: Large fungating ulcerated mass on the right shoulder covered with a dressing CENTRAL NERVOUS SYSTEM: Alert and oriented -3. No focal deficits, tone is nor mal in all 4 extremities. PSYCHIATRIC: Alert and oriented -3. Appropriate affect. Intact judgment and insight. - Labs CBC & Chem 7: 02/13/19 08:51 02/13/19 08:51 Labs: Abnormal Lab Results - Last 24 Hours (Table) 02/12/19 02/13/19 02/13/19 Range/Units 13:37 08:51 08:51 Hgb 11.3 L (13.0-17.5) gm/dL Hct 35.6 L (39.0-53.0) % RDW 15.8 H (11.5-15.5) % Lymphocytes # 0.9 L (1.0-4.8) k/uL Potassium 3.1 L (3.5-5.1) mmol/L Plasma Lactic Acid Quincy 2.8 H* (0.7-2.0) mmol/L Calcium 11.0 H (8.4-10.2) mg/dL ALT 17 L (21-72) U/L Albumin 3.0 L (3.5-5.0) g/dL Microbiology - Last 24 Hours (Table) 02/12/19 15:45 Gram Stain - Preliminary Sputum Sputum Culture - Preliminary 02/11/19 12:30 Blood Culture - Preliminary Blood No Growth after 24 hours Assessment and Plan Plan: Assessment: #1. Diffuse thoracic and extrathoracic adenopathy, fungating mass in the right shoulder area, possible mass in the left lung base, rule out lymphoma versus metastatic carcinoma #2. Rule out lung cancer #3. Release history of tobacco use #4. Right axillary adenopathy, reevaluated by interventional radiology #5. History of hyperlipidemia #6. History of hypothyroidism #7. History of chest pain/angina pectoris #8. Chronic obstructive pulmonary disease #9. GERD/reflux #10. Osteoarthritis #11. History of previous pneumonia #12. Chronic constipation #13. Right ear tinnitus Plan: Patient has been referred to interventional radiology for possible biopsy of the right axillary node, and general surgery has been consulted for biopsy of the right shoulder mass. Ultrasound chest has been reviewed and pleural effusion pocket on the left is only measuring 3.3 cm, no plans for thoracentesis at this time, will continue empiric antibiotics, breathing treatments, patient is in no acute distress. Patient's and his son are at the bedside, and they want the necessary testing done to establish a diagnosis, the patient himself may be resistant to testing, they will discuss it among themselves and decide on how aggressive they want to be with medical treatment and testing. Prognosis extremely guarded, patient is a DO NOT RESUSCITATE CODE STATUS, will continue with supportive treatment, I performed a history & physical examination of the patient and discussed their management with my nurse practitioner, Cassidy Kessler. I reviewed the nurse practitioner's note and agree with the documented findings and plan of care. Lung sounds are positive for diminished breath sounds. The findings and the impression was discussed with the patient. I attest to the documentation by the nurse practitioner. Time with Patient: Less than 30
--- NOTE | 2019-02-13 17:31 | P.PN ---
Subjective Progress Note Date: 02/13/19 This is an 88-year-old male patient who presented to the hospital with complaints of generalized weakness with increased altered mental status changes. Patient does report he's had a cough over the past few days patient is a poor historian. No family at bedside. History obtained from records. Patient does have past medical history of chest pain, COPD, GERD, hyperlipidemia, osteoarthritis, pneumonia thyroid disorder. Patient also has abnormal growths to right shoulder with drainage. Patient reports he's had this for [address] completed showing no acute intracranial hemorrhage, mass effect or midline shift seen. Chest x-ray completed showing bibasilar infiltrate and small effusion with large area of consolidation left upper lobe. Correlate for pneumonia underlying neoplasm not excluded. Patient started on Rocephin and azithromycin for pneumonia. Sputum culture ordered. Lactic acid elevated at 2.9. At this time patient is resting comfortably in bed. Patient denies chest pain or shortness of breath. Patient denies nausea vomiting or diarrhea. Patient denies any urinary burning or frequency On 02/12/2019 patient is alert and oriented 2 confused at times resting comf ortably bed is at bedside. Dr. cortes has been consulted for surgical consult in regards to right shoulder abscess for possible biopsy. CT of chest also ordered per pulmonary services. Per patient's requesting patient may be a DO NOT RESUSCITATE. Patient still having productive cough. Patient denies chest pain. Patient denies nausea vomiting or diarrhea. patient denies any urinary burning or frequency On 02/13/2019 patient is alert slightly confused in no apparent distress, had po or oral intake today, otherwise he denies any complaints there is no fever or chills no headache or dizziness no chest pain no shortness of breath, no nausea or vomiting no abdominal pain no diarrhea and no urinary symptoms Objective - Vital Signs Vital signs: Vital Signs Temp 97.4 F L 02/13/19 08:00 Pulse 88 02/13/19 15:19 Resp 18 02/13/19 12:00 BP 136/72 02/13/19 08:00 Pulse Ox 95 02/13/19 08:00 Intake & Output 02/12/19 02/13/19 02/13/19 18:59 06:59 18:59 Intake Total 180 0 Output Total 650 650 Balance -470 -650 0 Weight 71 kg Intake: Oral 180 0 Output: Urine 650 650 Other: Voiding Method Urinal Urinal Urinal # Voids 1 1 - Exam Head normocephalic and atraumatic Neck supple no JVD no goiter Lungs diminished bilaterally Heart regular rate and rhythm S1-S2, no rub or gallop Abdomen is soft nontender nondistended positive bowel sounds no hepatosplenomegaly Extremities no edema no cyanosis or clubbing Neuro alert and orientated to 3 large ,abnormal growths noted to right shoulder with serosanguineous drainage - Labs CBC & Chem 7: 02/13/19 08:51 02/13/19 08:51 Labs: Abnormal Lab Results - Last 24 Hours (Table) 02/13/19 02/13/19 Range/Units 08:51 08:51 Hgb 11.3 L (13.0-17.5) gm/dL Hct 35.6 L (39.0-53.0) % RDW 15.8 H (11.5-15.5) % Lymphocytes # 0.9 L (1.0-4.8) k/uL Potassium 3.1 L (3.5-5.1) mmol/L Calcium 11.0 H (8.4-10.2) mg/dL ALT 17 L (21-72) U/L Albumin 3.0 L (3.5-5.0) g/dL Microbiology - Last 24 Hours (Table) 02/12/19 15:45 Gram Stain - Preliminary Sputum Sputum Culture - Preliminary Gram Neg Bacilli 02/11/19 12:30 Blood Culture - Preliminary Blood No Growth after 48 hours Assessment and Plan Plan: 1. Increased weakness and altered mental status likely secondary to pneumonia infection. Head CT completed showing no acute intracranial hemorrhage, mass effect or midline shift seen. Lactic acid 2.9 repeat ordered per protocol 2.5 then 2.8 2. Left upper lobe pneumonia with elevated lactic acid sepsis present on admission. Chest x-ray completed showing bibasilar infiltrate and small effusion with large area of consolidation left upper lobe. Correlate for pneumonia. Underlying neoplasm not excluded. Sputum culture ordered. Patient started on azithromycin and Rocephin. Pulmonary service is consulted. CT of chest has been ordered per pulmonary services 3. Large growth noted to right shoulder with drainage. Per infectious disease right upper arm and shoulder area skin lesion with fungating wound highly suspicious for malignancy. Cultures have been ordered general surgeon consult for possible biopsy to rule out malignancy. Local wound care with Aquacel silver dressing to be changed every 48 hours. 4. Hypokalemia. Potassium 3.4 replacement protocol. 5. History of COPD 6. History of angina 7. History of hyperlipidemia. Statin resumed 8. History of hypothyroidism. Continue Synthroid. TSH level 2.490 9. History of tinnitus 10. 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 DVT prophylaxis heparin. GI prophylaxis Pepcid Pulmonary and infectious disease service following Azithromycin and Rocephin for IV antibiotics General surgeon consult for biopsy of right shoulder wound CT chest ordered to rule out malignancy per pulmonary
[2019-02-13] MEDS: POTASSIUM CHLORIDE ER 20 MEQ TAB.ER PO SCH ×2 (18:25→18:26)
[2019-02-14] MEDS: LEVOTHYROXINE 75 MCG TAB PO SCH (06:40)
[2019-02-14 07:07] LABS: Basophils % (A) 0 %; Eosinophils # (A) 0.5 k/uL (0-0.7); Eosinophils % (A) 5 %; HCT 37.3 % (39.0-53.0); HGB 11.6 gm/dL (13.0-17.5); Hypochromasia Moderate; Lymphocytes # (A) 1.2 k/uL (1.0-4.8); Lymphocytes % (A) 11 %; MCH 25.5 pg (25.0-35.0); MCHC 31.1 g/dL (31.0-37.0); MCV 82.1 fL (80.0-100.0); Mean Platelet Volume 7.8; Monocytes # (A) 0.5 k/uL (0-1.0); Monocytes % (A) 5 %; Neutrophils # (A) 8.9 k/uL (1.3-7.7); Neutrophils % (A) 78 %; Platelet Count 241 k/uL (150-450); RBC 4.55 m/uL (4.30-5.90); WBC 11.4 k/uL (3.8-10.6)
[2019-02-14 07:13] LABS: Calcium 11.2 mg/dL (8.4-10.2); Potassium 3.3 mmol/L (3.5-5.1); Total Bilirubin 0.7 mg/dL (0.2-1.3); Total Protein 6.5 g/dL (6.3-8.2)
[2019-02-14] MEDS: IPRATROPIUM-ALBUTEROL 3 ML NEB INHALATION SCH ×4 (07:26→19:50)
--- NOTE | 2019-02-14 08:04 | US ---
EXAMINATION TYPE: US biopsy lymph node DATE OF EXAM: 02/13/2019 HISTORY: Right axillary adenopathy. FINDINGS: Maximal barrier technique was utilized. The skin overlying a suitable path to the patient' s right axillary adenopathy was localized with ultrasound and the overlying skin prepped and draped. Ultrasound was utilized with sterile technique. Lidocaine was used for local anesthesia. A skin ni ck was made with a scalpel. An 18-gauge needle was advanced under direct ultrasound guidance and cor e specimen obtained of the mass. 2 additional passes performed. Specimen submitted in formalin and in flow media to Pathology. Following the procedure, hemostasis achieved and the patient is discharged in stable condition without complication. IMPRESSION:STATUS POST ULTRASOUND GUIDED CORE BIOPSY OF right axillary adenopathy, PATHOLOGY IS PENDI NG. THIS PROCEDURE IS PERFORMED BY THE UNDERSIGNED.
[2019-02-14] MEDS: MULTIVITAMINS, THERA 1 EACH TAB PO SCH (09:09)
[2019-02-14] MEDS: FAMOTIDINE 20 MG TAB PO SCH (09:09)
[2019-02-14] MEDS: EZETIMIBE 10 MG TAB PO SCH (09:09)
[2019-02-14] MEDS: HEPARIN SODIUM,PORCINE 5,000 UNIT/ML 1 ML VIAL SQ SCH ×2 (09:09→20:17)
[2019-02-14] MEDS: AZITHROMYCIN 500 MG TAB PO SCH (09:09)
[2019-02-14] MEDS: POTASSIUM CHLORIDE ER 20 MEQ TAB.ER PO SCH ×2 (09:09→13:18)
--- NOTE | 2019-02-14 11:00 | P.PN ---
Subjective Progress Note Date: 02/14/19 This is an 88-year-old male patient who presented to the hospital with complaints of generalized weakness with increased altered mental status changes. Patient does report he's had a cough over the past few days patient is a poor historian. No family at bedside. History obtained from records. Patient does have past medical history of chest pain, COPD, GERD, hyperlipidemia, osteoarthritis, pneumonia thyroid disorder. Patient also has abnormal growths to right shoulder with drainage. Patient reports he's had this for [address] completed showing no acute intracranial hemorrhage, mass effect or midline shift seen. Chest x-ray completed showing bibasilar infiltrate and small effusion with large area of consolidation left upper lobe. Correlate for pneumonia underlying neoplasm not excluded. Patient started on Rocephin and azithromycin for pneumonia. Sputum culture ordered. Lactic acid elevated at 2.9. At this time patient is resting comfortably in bed. Patient denies chest pain or shortness of breath. Patient denies nausea vomiting or diarrhea. Patient denies any urinary burning or frequency On 02/12/2019 patient is alert and oriented 2 confused at times resting comfo rtably bed is at bedside. Dr. cortes has been consulted for surgical consult in regards to right shoulder abscess for possible biopsy. CT of chest also ordered per pulmonary services. Per patient's requesting patient may be a DO NOT RESUSCITATE. Patient still having productive cough. Patient denies chest pain. Patient denies nausea vomiting or diarrhea. patient denies any urinary burning or frequency On 02/13/2019 patient is alert slightly confused in no apparent distress, had poor oral intake today, otherwise he denies any complaints there is no fever or chills no headache or dizziness no chest pain no shortness of breath, no nausea or vomiting no abdominal pain no diarrhea and no urinary symptoms On 02/14/2019 patient remains slightly confused. Patient underwent lymph node biopsy ultrasound. Awaiting culture. Patient still having non productive cough. At this time patient denies chest pain or shortness of breath. Patient denies nausea vomiting or diarrhea. Patient denies any urinary burning or frequency Objective - Vital Signs Vital signs: Vital Signs Temp 97.5 F L 02/14/19 08:00 Pulse 106 H 02/14/19 08:00 Resp 18 02/14/19 08:00 BP 126/75 02/14/19 08:00 Pulse Ox 93 L 02/14/19 08:00 Intake & Output 02/13/19 02/14/19 02/14/19 18:59 06:59 18:59 Intake Total 0 118 Balance 0 118 Intake: Oral 0 118 Other: Voiding Method Urinal Urinal # Voids 1 0 - Exam Head normocephalic Neck supple Lungs diminished bilaterally Heart regular rate and rhythm S1-S2, no rub or gallop Abdomen is soft nontender nondistended positive bowel sounds no hepatosplenomegaly Extremities no edema Neuro alert and orientated to 3 large ,abnormal growths noted to right shoulder with serosanguineous drainage - Labs CBC & Chem 7: 02/14/19 06:40 02/14/19 06:40 Labs: Abnormal Lab Results - Last 24 Hours (Table) 02/14/19 02/14/19 Range/Units 06:40 06:40 WBC 11.4 H (3.8-10.6) k/uL Hgb 11.6 L (13.0-17.5) gm/dL Hct 37.3 L (39.0-53.0) % RDW 16.0 H (11.5-15.5) % Neutrophils # 8.9 H (1.3-7.7) k/uL Potassium 3.3 L (3.5-5.1) mmol/L Calcium 11.2 H (8.4-10.2) mg/dL Albumin 3.0 L (3.5-5.0) g/dL Microbiology - Last 24 Hours (Table) 02/12/19 15:45 Gram Stain - Preliminary Sputum Sputum Culture - Preliminary Gram Neg Bacilli 02/11/19 12:30 Blood Culture - Preliminary Blood No Growth after 48 hours Assessment and Plan Assessment: 1. Increased weakness and altered mental status likely secondary to pneumonia infection. Head CT completed showing no acute intracranial hemorrhage, mass effect or midline shift seen. Lactic acid 2. 9 repeat ordered per protocol 2. Left upper lobe pneumonia with elevated lactic acid sepsis present on admission. Chest x-ray completed showing bibasilar infiltrate and small e ffusion with large area of consolidation left upper lobe. Correlate for pneumonia. Underlying neoplasm not excluded. Sputum culture ordered. Patient started on azithromycin and Rocephin. Pulmonary service is consulted. CT of chest has been ordered per pulmonary services 3. Large growth noted to right shoulder with drainage. Per infectious disease right upper arm and shoulder area skin lesion with fungating wound highly suspicious for malignancy. Cultures have been ordered general surgeon consult for possible biopsy to rule out malignancy. Local wound care with Aquacel silver dressing to be changed every 48 hours. Per surgical services patient currently refusing biopsy of right shoulder mass. 4. Hypokalemia. Potassium 3.4 replacement protocol. 5. History of COPD 6. History of angina 7. History of hyperlipidemia. Statin resumed 8. History of hypothyroidism. Continue Synthroid. TSH level 2.490 9. History of tinnitus 10. 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 11. Diffuse thoracic and extrathoracic edema the, fungating mass in the right shoulder area possible mass in left lung base. Per pulmonary rule out lymphoma versus metastatic carcinoma. Per pulmonary IR has been consulted for biopsy the right axillary nodule. Biopsy completed. Ultrasound of chest has been reviewed and pleural effusion pocket only measuring 3.3 planes for thoracentesis at this time. DVT prophylaxis heparin. GI prophylaxis Pepcid Pulmonary, surgical services and infectious disease service following Azithromycin and Rocephin for IV antibiotics I performed an examination of the patient and discussed their management with the Nurse Practitioner. I have reviewed the Nurse Practitioner's notes and agree with the documented findings and plan of care
--- NOTE | 2019-02-14 11:30 | P.PN ---
<Angelian Bello Renato - Last Filed: 02/14/19 11:27> Subjective Progress Note Date: 02/14/19 CHIEF COMPLAINT: Right posterior shoulder mass HISTORY OF PRESENT ILLNESS: Patient examined this morning at the bedside. He is s/p lymph node biospy He continues to refuse biopsy of right shoulder mass. Denies pain to mass. Denies nausea or vomiting. Tolerating diet. PHYSICAL EXAM: VITAL SIGNS: Reviewed. GENERAL: Well-developed in no acute distress. HEENT: No sclera icterus. Extraocular movements grossly intact. Moist buccal mucosa. Head is atraumatic, normocephalic. ABDOMEN: Soft. Nondistended. Nontender. NEUROLOGIC: Alert and oriented. Cranial nerves II through XII grossly intact. SKIN: 8 x 6 cm fungating mass to right posterior shoulder. Dressing intact with serous drainage. ASSESSMENT: 1. Right shoulder mass, suspicious for primary cutaneous malignancy or metastasis. PLAN: Await lymph node biopsy results. Patient currently refusing biopsy of right shoulder mass. We will follow as needed. Please call with questions Nurse practitioner note has been reviewed by physician. Signing provider agrees with the documented findings, assessment, and plan of care. Objective - Vital Signs Vital signs: Vital Signs Temp 97.5 F L 02/14/19 08:00 Pulse 106 H 02/14/19 08:00 Resp 18 02/14/19 08:00 BP 126/75 02/14/19 08:00 Pulse Ox 93 L 02/14/19 08:00 Intake & Output 02/13/19 02/14/19 02/14/19 18:59 06:59 18:59 Intake Total 0 118 Balance 0 118 Intake: Oral 0 118 Other: Voiding Method Urinal Urinal # Voids 1 0 - Labs CBC & Chem 7: 02/14/19 06:40 02/14/19 06:40 Labs: Abnormal Lab Results - Last 24 Hours (Table) 02/14/19 02/14/19 Range/Units 06:40 06:40 WBC 11.4 H (3.8-10.6) k/uL Hgb 11.6 L (13.0-17.5) gm/dL Hct 37.3 L (39.0-53.0) % RDW 16.0 H (11.5-15.5) % Neutrophils # 8.9 H (1.3-7.7) k/uL Potassium 3.3 L (3.5-5.1) mmol/L Calcium 11.2 H (8.4-10.2) mg/dL Albumin 3.0 L (3.5-5.0) g/dL Microbiology - Last 24 Hours (Table) 02/12/19 15:45 Gram Stain - Preliminary Sputum Sputum Culture - Preliminary Gram Neg Bacilli 02/11/19 12:30 Blood Culture - Preliminary Blood No Growth after 48 hours <Roland Lacey - Last Filed: 02/14/19 14:19> Subjective As above. Patient had axillary lymph node biopsy yesterday. Possible oncologic evaluation pending those results. Patient's is present at the bedside. She realizes patient has been refusing biopsy or intervention and right shoulder mass. She does not believe he is a surgical candidate which we would concur with. We'll sign off. Please call if needed. Objective - Vital Signs Vital signs: Vital Signs Temp 97.5 F L 02/14/19 08:00 Pulse 86 02/14/19 12:11 Resp 18 02/14/19 12:00 BP 144/74 02/14/19 11:56 Pulse Ox 97 02/14/19 11:56 Intake & Output 02/13/19 02/14/19 02/14/19 18:59 06:59 18:59 Intake Total 0 118 Balance 0 118 Weight 63.2 kg Intake: Oral 0 118 Other: Voiding Method Urinal Urinal # Voids 1 0 - Labs CBC & Chem 7: 02/14/19 06:40 02/14/19 06:40 Labs: Abnormal Lab Results - Last 24 Hours (Table) 02/14/19 02/14/19 Range/Units 06:40 06:40 WBC 11.4 H (3.8-10.6) k/uL Hgb 11.6 L (13.0-17.5) gm/dL Hct 37.3 L (39.0-53.0) % RDW 16.0 H (11.5-15.5) % Neutrophils # 8.9 H (1.3-7.7) k/uL Potassium 3.3 L (3.5-5.1) mmol/L Calcium 11.2 H (8.4-10.2) mg/dL Albumin 3.0 L (3.5-5.0) g/dL Microbiology - Last 24 Hours (Table) 02/12/19 15:45 Gram Stain - Final Sputum Sputum Culture - Final Pseudomonas aeruginosa Maddi sp,not albicans/galbr 02/11/19 12:30 Blood Culture - Preliminary Blood No Growth after 48 hours Assessment and Plan (1) Shoulder mass Current Visit: Yes Status: Acute Code(s): R22.30 - LOCALIZED SWELLING, MASS AND LUMP, UNSPECIFIED UPPER LIMB SNOMED Code(s): 400690549
--- NOTE | 2019-02-14 13:08 | CDI ---
Documentation Clarification Form Date: 02/14/2019 12:59:51 PM From: Christianne HintonHarrisonTAYLER, CCDS Admit Date: 02/11/2019 12:04:00 PM Patient Name: Brian Burton Visit Number: [id number] Discharge Date: ATTENTION: The Clinical Documentation Specialists (CDI) and [facility] Coding Staff appreciate your assistance in clarifying documentation. Please respond to the clarification below the line at the bottom and electronically sign. The CDI & [facility] Coding staff will review the response and follow-up if needed. Please note: Queries are made part of the Legal Health Record. If you have any questions, please contact the author of this message via ITS. Dr. Ravinder Davis: Per the History & Physical: "Increased weakness and altered mental status likely secondary to pneumonia infection." Also documented confusion in subsequent progress notes. History/Risk Factors: Chest pain, COPD, GERD, Hyperlipidemia, Osteoarthritis, Pneumonia, Thyroid disorder. Clinical Indicators: This is an 88-year-old male patient who presented to the hospital with complaints of generalized weakness with increased altered mental status changes. Patient does report he's had a cough over the past few days patient is a poor historian. Diagnosed with Sepsis, Pneumonia, has large mass on right shoulder, suspected malignancy. Labs: Hgb 11.3*, K 3.4*, BUN 29^, Lactic Acid 2.9^^, 2.9^^, 2.7^^; Calcium 11.1^, Trops 0.043^^, 0.042^^, 0.042^^, Albumin 3.2*. CT Brain: No acute intracranial hemorrhage, mass effect of shift. Treatment: IV fluid bolus, IV Azithromycin, IV Rocephin, INH Albuterol, Heparin sq, IR biopsy of right axillary lymph node. In your professional opinion, can you please clarify the specific type of Encephalopathy, if known? Metabolic Encephalopathy Septic Encephalopathy Toxic Encephalopathy Other, please specify Unable to determine (Last Revision: June 2017) Metabolic encephalopathy due to pneumonia MTDD
--- NOTE | 2019-02-14 13:15 | CDI ---
Documentation Clarification Form Date: 02/14/2019 1:10:56 PM From: Christianne HintonHarrisonTAYLER, CCDS Admit Date: 02/11/2019 12:04:00 PM Patient Name: Brian Burton Visit Number: [id number] Discharge Date: ATTENTION: The Clinical Documentation Specialists (CDI) and [facility] Coding Staff appreciate your assistance in clarifying documentation. Please respond to the clarification below the line at the bottom and electronically sign. The CDI & [facility] Coding staff will review the response and follow-up if needed. Please note: Queries are made part of the Legal Health Record. If you have any questions, please contact the author of this message via ITS. Dr. Ravinder Davis: Pneumonia is documented in your notes staring with the History & Physical on 02/11. History/Risk Factors: Chest pain, COPD, GERD, Hyperlipidemia, Osteoarthritis, Pneumonia, Thyroid disorder. Clinical Indicators: This is an 88-year-old male patient who presented to the hospital with complaints of generalized weakness with increased altered mental status changes. Patient does report he's had a cough over the past few days patient is a poor historian. Diagnosed with Sepsis, Pneumonia, has large mass on right shoulder, suspected malignancy. Labs: Hgb 11.3*, K 3.4*, BUN 29^, Lactic Acid 2.9^^, 2.9^^, 2.7^^; Calcium 11.1^, Trops 0.043^^, 0.042^^, 0.042^^, Albumin 3.2*. Sputum culture: preliminary: Gram Neg Bacilli CT Brain: No acute intracranial hemorrhage, mass effect of shift. Treatment: IV fluid bolus, IV Azithromycin, IV Rocephin, INH Albuterol, Heparin sq, IR biopsy of right axillary lymph node. In order to capture the severity of condition, please clarify if the condition signifies and you are treating for: Bacterial Pneumonia, specify causal organism (if known) Gram Negative Pneumonia Other bacteria (please specify) Viral Pneumonia, specify casual organism (if known) Healthcare Acquired Pneumonia/Pneumonia, unspecified Other, please specify Unable to determine (Last Revision: June 2017) Bacterial pneumonia sputum culture positive for Pseudomonas aeruginosa MTDD
[2019-02-14 13:54] VITALS: BMI 23.1
--- NOTE | 2019-02-14 14:08 | P.PN ---
Subjective Progress Note Date: 02/14/19 Principal diagnosis: Diffuse thoracic an extrathoracic adenopathy and the fungating mass on the right shoulder area with a possible mass in the left lung base rule out lymphoma versus metastatic carcinoma On 02/13/2019 patient seen in follow-up on selective care unit, he is resting in bed, he is awake and alert, not appear to be in any acute distress, today his son and his are at the bedside, and he states that the right shoulder mass was never biopsied because patient with never allow anybody to biopsy it in the past. But the and a son do want necessary testing done to establish a diagnosis in regards to patient's mass on his right shoulder, and multiple abn ormal findings seen on the CT chest, and adenopathy. Patient is DO NOT RESUSCITATE, he is currently on a combination of antibiotics, Zithromax and Rocephin, nebulized bronchodilators, when necessary pain medications. His had no fever or chills, he remains on 2 L of oxygen pulse ox is 95-96%. Hemo dynamically stable. It is labs have been reviewed, showing white blood cell of 9.5, hemoglobin of 11.3, renal profile and electrolytes are unremarkable with exception of potassium which is low at 3.1, has been replaced per protocol. We consulted interventional radiology in regards to right axillary lymph node biopsy, and general surgery was consulted in regards to right shoulder mass biopsy. Ultrasound of the chest was completed showing only 3.3 cm pleural effusion pocket on the left. No plans for thoracentesis at this time. On 02/14/2019 patient is seen in follow-up on selective care unit, he is resting comfortably in bed, in no acute distress, lung sounds are clear to auscultation, no complaints of dyspnea. Vital signs are stable, patient underwent right axillary node biopsy by interventional radiology, results are pending. Patient has refused biopsy of his right shoulder mass. No thoracentesis plan at this time in view of a very small loculated pocket of pleural fluid in the left lung. Hemodynamically stable, no fever or chills, today's labs have been reviewed. sputum culture was positive for pseudomonas, and we will switch patient's antibiotic coverage from Zithromax and Rocephin to Zosyn.patient has been afebrile, he remains on 2 L of oxygen with a pulse ox of 97%. Objective - Vital Signs Vital signs: Vital Signs Temp 97.5 F L 02/14/19 08:00 Pulse 86 02/14/19 12:11 Resp 18 02/14/19 12:00 BP 144/74 02/14/19 11:56 Pulse Ox 97 02/14/19 11:56 Intake & Output 02/13/19 02/14/19 02/14/19 18:59 06:59 18:59 Intake Total 0 118 Balance 0 118 Weight 63.2 kg Intake: Oral 0 118 Other: Voiding Method Urinal Urinal # Voids 1 0 - Exam GENERAL EXAM: Alert, very pleasant, 88-year-old white male, who is a poor historian, 2 L of oxygen with the process of 95% comfortable in no apparent distress. HEAD: Normocephalic/atraumatic. EYES: Normal reaction of pupils, equal size. Conjunctiva pink, sclera white. NOSE: Clear with pink turbinates. THROAT: No erythema or exudates. NECK: No masses, no JVD, no thyroid enlargement, no adenopathy. CHEST: No chest wall deformity. Symmetrical expansion. LUNGS: Equal air entry with no crackles, wheeze, rhonchi or dullness. Diminished sounds bilaterally CVS: Regular rate and rhythm, normal S1 and S2, no gallops, no murmurs, no rubs ABDOMEN: Soft, nontender. No hepatosplenomegaly, normal bowel sounds, no guarding or rigidity. EXTREMITIES: No clubbing, no edema, no cyanosis, 2+ pulses and upper and lower extremities. MUSCULOSKELETAL: Muscle strength and tone normal. SPINE: No scoliosis or deformity SKIN: Large fungating ulcerated mass on the right shoulder covered with a dressing CENTRAL NERVOUS SYSTEM: Alert and oriented -3. No focal deficits, tone is nor mal in all 4 extremities. PSYCHIATRIC: Alert and oriented -3. Appropriate affect. Intact judgment and insight. - Labs CBC & Chem 7: 02/14/19 06:40 02/14/19 06:40 Labs: Abnormal Lab Results - Last 24 Hours (Table) 02/14/19 02/14/19 Range/Units 06:40 06:40 WBC 11.4 H (3.8-10.6) k/uL Hgb 11.6 L (13.0-17.5) gm/dL Hct 37.3 L (39.0-53.0) % RDW 16.0 H (11.5-15.5) % Neutrophils # 8.9 H (1.3-7.7) k/uL Potassium 3.3 L (3.5-5.1) mmol/L Calcium 11.2 H (8.4-10.2) mg/dL Albumin 3.0 L (3.5-5.0) g/dL Microbiology - Last 24 Hours (Table) 02/12/19 15:45 Gram Stain - Final Sputum Sputum Culture - Final Pseudomonas aeruginosa Maddi sp,not albicans/galbr 02/11/19 12:30 Blood Culture - Preliminary Blood No Growth after 48 hours Assessment and Plan Plan: Assessment: #1. Diffuse thoracic and extrathoracic adenopathy, fungating mass in the right shoulder area, possible mass in the left lung base, rule out lymphoma versus metastatic carcinoma #2. Rule out lung cancer #3. Release history of tobacco use #4. Right axillary adenopathy, reevaluated by interventional radiology #5. History of hyperlipidemia #6. History of hypothyroidism #7. History of chest pain/angina pectoris #8. Chronic obstructive pulmonary disease #9. GERD/reflux #10. Osteoarthritis #11. History of previous pneumonia #12. Chronic constipation #13. Right ear tinnitus #14. left lung pneumonia, with sputum cultures positive for pseudomonas aeruginosa Plan: Cultures were positive for pseudomonas aeruginosa, we'll switch the antibiotic coverage from Zithromax and Rocephin to IV Zosyn, will continue nebulized bronchodilators, Will await the results of the right axillary node biopsy. Overall prognosis is guarded. I performed a history & physical examination of the patient and discussed their management with my nurse practitioner, Cassidy Kessler. I reviewed the nurse practitioner's note and agree with the documented findings and plan of care. Lung sounds are positive for diminished breath sounds. The findings and the impression was discussed with the patient. I attest to the documentation by the nurse practitioner. Time with Patient: Less than 30
[2019-02-14] MEDS: PIPERACILLIN-TAZOBACTAM 3.375 GM in SODIUM CHLORIDE 0.9% 100 ML IVPB SCH ×2 (16:25→23:30)
[2019-02-15] MEDS: LEVOTHYROXINE 75 MCG TAB PO SCH (06:32)
[2019-02-15 06:49] LABS: Anisocytosis Slight; Basophils % (A) 0 %; Eosinophils # (A) 0.4 k/uL (0-0.7); Eosinophils % (A) 4 %; HCT 36.5 % (39.0-53.0); Hypochromasia Slight; Lymphocytes % (A) 9 %; MCH 24.9 pg (25.0-35.0); MCHC 30.1 g/dL (31.0-37.0); MCV 82.6 fL (80.0-100.0); Mean Platelet Volume 8.1; Monocytes # (A) 0.5 k/uL (0-1.0); Monocytes % (A) 5 %; Neutrophils % (A) 81 %; Platelet Count 202 k/uL (150-450); RBC 4.42 m/uL (4.30-5.90); RDW 16.5 % (11.5-15.5); WBC 11.1 k/uL (3.8-10.6)
[2019-02-15 07:02] LABS: Calcium 11.6 mg/dL (8.4-10.2); Potassium 3.6 mmol/L (3.5-5.1); Total Bilirubin 0.9 mg/dL (0.2-1.3); Total Protein 6.4 g/dL (6.3-8.2)
[2019-02-15] MEDS: IPRATROPIUM-ALBUTEROL 3 ML NEB INHALATION SCH ×4 (08:45→20:08)
[2019-02-15] MEDS: PIPERACILLIN-TAZOBACTAM 3.375 GM in SODIUM CHLORIDE 0.9% 100 ML IVPB SCH ×2 (09:57→16:29)
[2019-02-15] MEDS: EZETIMIBE 10 MG TAB PO SCH (09:57)
[2019-02-15] MEDS: FAMOTIDINE 20 MG TAB PO SCH (09:57)
[2019-02-15] MEDS: HEPARIN SODIUM,PORCINE 5,000 UNIT/ML 1 ML VIAL SQ SCH ×2 (09:57→22:42)
[2019-02-15] MEDS: MULTIVITAMINS, THERA 1 EACH TAB PO SCH (09:57)
--- NOTE | 2019-02-15 10:42 | P.PN ---
Subjective Progress Note Date: 02/15/19 This is an 88-year-old male patient who presented to the hospital with complaints of generalized weakness with increased altered mental status changes. Patient does report he's had a cough over the past few days patient is a poor historian. No family at bedside. History obtained from records. Patient does have past medical history of chest pain, COPD, GERD, hyperlipidemia, osteoarthritis, pneumonia thyroid disorder. Patient also has abnormal growths to right shoulder with drainage. Patient reports he's had this for [address] completed showing no acute intracranial hemorrhage, mass effect or midline shift seen. Chest x-ray completed showing bibasilar infiltrate and small effusion with large area of consolidation left upper lobe. Correlate for pneumonia underlying neoplasm not excluded. Patient started on Rocephin and azithromycin for pneumonia. Sputum culture ordered. Lactic acid elevated at 2.9. At this time patient is resting comfortably in bed. Patient denies chest pain or shortness of breath. Patient denies nausea vomiting or diarrhea. Patient denies any urinary burning or frequency On 02/12/2019 patient is alert and oriented 2 confused at times resting comfo rtably bed is at bedside. Dr. cortes has been consulted for surgical consult in regards to right shoulder abscess for possible biopsy. CT of chest also ordered per pulmonary services. Per patient's requesting patient may be a DO NOT RESUSCITATE. Patient still having productive cough. Patient denies chest pain. Patient denies nausea vomiting or diarrhea. patient denies any urinary burning or frequency On 02/13/2019 patient is alert slightly confused in no apparent distress, had poor oral intake today, otherwise he denies any complaints there is no fever or chills no headache or dizziness no chest pain no shortness of breath, no nausea or vomiting no abdominal pain no diarrhea and no urinary symptoms On 02/14/2019 patient remains slightly confused. Patient underwent lymph node biopsy ultrasound. Awaiting culture. Patient still having non productive cough. At this time patient denies chest pain or shortness of breath. Patient denies nausea vomiting or diarrhea. Patient denies any urinary burning or frequency on 02/15/2019 patient is resting comfortably in bed. pathology on biopsy still pending. antibiotics switched to Zosyn per pulmonary. Oncology services have been consulted.at this time patient denies chest pain. Patient denies nausea vomiting or diarrhea. Patient denies any urinary burning or frequency Objective - Vital Signs Vital signs: Vital Signs Temp 97.7 F 02/15/19 04:00 Pulse 96 02/15/19 04:00 Resp 24 02/15/19 04:00 BP 136/80 02/15/19 04:00 Pulse Ox 96 02/15/19 04:00 Intake & Output 02/14/19 02/15/19 02/15/19 18:59 06:59 18:59 Intake Total 236 Output Total 100 250 100 Balance 136 -250 -100 Weight 63.2 kg Intake: Oral 236 Output: Urine 100 250 100 Other: Voiding Method Urinal # Voids 0 - Exam Head normocephalic Neck supple Lungs diminished bilaterally Heart regular rate and rhythm S1-S2, no rub or gallop Abdomen is soft nontender nondistended positive bowel sounds no hepatosplenomegaly Extremities no edema Neuro alert and orientated to 3 large ,abnormal growths noted to right shoulder with serosanguineous drainage - Labs CBC & Chem 7: 02/15/19 06:15 02/15/19 06:15 Labs: Abnormal Lab Results - Last 24 Hours (Table) 02/15/19 02/15/19 Range/Units 06:15 06:15 WBC 11.1 H (3.8-10.6) k/uL Hgb 11.0 L (13.0-17.5) gm/dL Hct 36.5 L (39.0-53.0) % MCH 24.9 L (25.0-35.0) pg MCHC 30.1 L (31.0-37.0) g/dL RDW 16.5 H (11.5-15.5) % Neutrophils # 9.0 H (1.3-7.7) k/uL Chloride 108 H (98-107) mmol/L Calcium 11.6 H (8.4-10.2) mg/dL Albumin 3.0 L (3.5-5.0) g/dL Microbiology - Last 24 Hours (Table) 02/11/19 12:30 Blood Culture - Preliminary Blood No Growth after 72 hours 02/12/19 15:45 Gram Stain - Final Sputum Sputum Culture - Final Pseudomonas aeruginosa Maddi sp,not albicans/galbr Assessment and Plan Assessment: 1. Increased weakness and altered mental status likely secondary to pneumonia infection. Head CT completed showing no acute intracranial hemorrhage, mass effect or midline shift seen. Lactic acid 2. 9 repeat ordered per protocol 2. Left upper lobe pneumonia with elevated lactic acid sepsis present on admission. Chest x-ray completed showing bibasilar infiltrate and small effusion with large area of consolidation left upper lobe. Correlate for pneumonia. Underlying neoplasm not excluded. Sputum culture ordered. Patient started on azithromycin and Rocephin. Pulmonary service is consulted. CT of chest has been ordered per pulmonary services. antibiotics have been switched to Zosyn per infectious disease 3. Large growth noted to right shoulder with drainage. Per infectious disease right upper arm and shoulder area skin lesion with fungating wound highly suspicious for malignancy. Cultures have been ordered general surgeon consult for possible biopsy to rule out malignancy. Local wound care with Aquacel silver dressing to be changed every 48 hours. Per surgical services patient currently refusing biopsy of right shoulder mass. 4. Diffuse thoracic and extrathoracic edema the, fungating mass in the right shoulder area possible mass in left lung base. Per pulmonary rule out lymphoma versus metastatic carcinoma. Per pulmonary IR has been consulted for biopsy the right axillary nodule. Biopsy completed. Ultrasound of chest has been reviewed and pleural effusion pocket only measuring 3.3 planes for thoracentesis at this time. 5. History of COPD 6. History of angina 7. History of hyperlipidemia. Statin resumed 8. History of hypothyroidism. Continue Synthroid. TSH level 2.490 9. History of tinnitus 10. 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 11. Hypokalemia. Potassium 3.4 replacement protocol. DVT prophylaxis heparin. GI prophylaxis Pepcid Pulmonary, oncology, surgical services and infectious disease service following antibiotics Zosyn Pathology from biopsy pending social work consulted Jeannie upon discharge I performed an examination of the patient and discussed their management with the Nurse Practitioner. I have reviewed the Nurse Practitioner's notes and agree with the documented findings and plan of care
--- NOTE | 2019-02-15 11:58 | P.PN ---
Subjective Progress Note Date: 02/15/19 Principal diagnosis: Diffuse thoracic an extrathoracic adenopathy and the fungating mass on the right shoulder area with a possible mass in the left lung base rule out lymphoma versus metastatic carcinoma On 02/13/2019 patient seen in follow-up on selective care unit, he is resting in bed, he is awake and alert, not appear to be in any acute distress, today his son and his are at the bedside, and he states that the right shoulder mass was never biopsied because patient with never allow anybody to biopsy it in the past. But the and a son do want necessary testing done to establish a diagnosis in regards to patient's mass on his right shoulder, and multiple abn ormal findings seen on the CT chest, and adenopathy. Patient is DO NOT RESUSCITATE, he is currently on a combination of antibiotics, Zithromax and Rocephin, nebulized bronchodilators, when necessary pain medications. His had no fever or chills, he remains on 2 L of oxygen pulse ox is 95-96%. Hemo dynamically stable. It is labs have been reviewed, showing white blood cell of 9.5, hemoglobin of 11.3, renal profile and electrolytes are unremarkable with exception of potassium which is low at 3.1, has been replaced per protocol. We consulted interventional radiology in regards to right axillary lymph node biopsy, and general surgery was consulted in regards to right shoulder mass biopsy. Ultrasound of the chest was completed showing only 3.3 cm pleural effusion pocket on the left. No plans for thoracentesis at this time. On 02/14/2019 patient is seen in follow-up on selective care unit, he is resting comfortably in bed, in no acute distress, lung sounds are clear to auscultation, no complaints of dyspnea. Vital signs are stable, patient underwent right axillary node biopsy by interventional radiology, results are pending. Patient has refused biopsy of his right shoulder mass. No thoracentesis plan at this time in view of a very small loculated pocket of pleural fluid in the left lung. Hemodynamically stable, no fever or chills, today's labs have been reviewed. sputum culture was positive for pseudomonas, and we will switch patient's antibiotic coverage from Zithromax and Rocephin to Zosyn.patient has been afebrile, he remains on 2 L of oxygen with a pulse ox of 97%. On 02/15/2019 patient seen in follow-up on selective care unit. Patient is sleeping in bed, his son is at the bedside, he states the patient has been sleeping a lot. Does not appear to be in any acute distress, he remains on oxygen at 2 L, his pulse ox is 94-96%, afebrile, hemodynamically stable, no specific complaints. Still awaiting the biopsy results of the right axillary lymph node. Sputum culture was positive for pseudomonas aeruginosa, patient remains on IV Zosyn, his been afebrile. Today's labs have been reviewed, showing white blood cell count of 11.1, hemoglobin of 11, sodium is 143, potassium is 3.6, chloride is 108, the rest of electrolytes and renal profile were within normal limits. Objective - Vital Signs Vital signs: Vital Signs Temp 97.4 F L 02/15/19 08:00 Pulse 98 02/15/19 11:40 Resp 24 02/15/19 04:00 BP 156/73 02/15/19 08:00 Pulse Ox 94 L 02/15/19 08:00 Intake & Output 02/14/19 02/15/19 02/15/19 18:59 06:59 18:59 Intake Total 236 100 Output Total 100 250 250 Balance 136 -250 -150 Weight 63.2 kg Intake: Oral 236 100 Output: Urine 100 250 250 Other: Voiding Method Urinal # Voids 0 - Exam GENERAL EXAM: Sleepy, 88-year-old white male, who is a poor historian, 2 L of oxygen with the process of 95% comfortable in no apparent distress. HEAD: Normocephalic/atraumatic. EYES: Normal reaction of pupils, equal size. Conjunctiva pink, sclera white. NOSE: Clear with pink turbinates. THROAT: No erythema or exudates. NECK: No masses, no JVD, no thyroid enlargement, no adenopathy. CHEST: No chest wall deformity. Symmetrical expansion. LUNGS: Equal air entry with no crackles, wheeze, rhonchi or dullness. Diminished sounds bilaterally CVS: Regular rate and rhythm, normal S1 and S2, no gallops, no murmurs, no rubs ABDOMEN: Soft, nontender. No hepatosplenomegaly, normal bowel sounds, no guarding or rigidity. EXTREMITIES: No clubbing, no edema, no cyanosis, 2+ pulses and upper and lower extremities. MUSCULOSKELETAL: Muscle strength and tone normal. SPINE: No scoliosis or deformity SKIN: Large fungating ulcerated mass on the right shoulder covered with a dressing CENTRAL NERVOUS SYSTEM: Alert and oriented -3. No focal deficits, tone is normal in all 4 extremities. PSYCHIATRIC: Alert and oriented -3. Appropriate affect. Intact judgment and insight. - Labs CBC & Chem 7: 02/15/19 06:15 02/15/19 06:15 Labs: Abnormal Lab Results - Last 24 Hours (Table) 02/15/19 02/15/19 Range/Units 06:15 06:15 WBC 11.1 H (3.8-10.6) k/uL Hgb 11.0 L (13.0-17.5) gm/dL Hct 36.5 L (39.0-53.0) % MCH 24.9 L (25.0-35.0) pg MCHC 30.1 L (31.0-37.0) g/dL RDW 16.5 H (11.5-15.5) % Neutrophils # 9.0 H (1.3-7.7) k/uL Chloride 108 H (98-107) mmol/L Calcium 11.6 H (8.4-10.2) mg/dL Albumin 3.0 L (3.5-5.0) g/dL Microbiology - Last 24 Hours (Table) 02/11/19 12:30 Blood Culture - Preliminary Blood No Growth after 72 hours 02/12/19 15:45 Gram Stain - Final Sputum Sputum Culture - Final Pseudomonas aeruginosa Maddi sp,not albicans/galbr Assessment and Plan Plan: Assessment: #1. Diffuse thoracic and extrathoracic adenopathy, fungating mass in the right shoulder area, possible mass in the left lung base, rule out lymphoma versus metastatic carcinoma #2. Rule out lung cancer #3. Release history of tobacco use #4. Right axillary adenopathy, reevaluated by interventional radiology #5. History of hyperlipidemia #6. History of hypothyroidism #7. History of chest pain/angina pectoris #8. Chronic obstructive pulmonary disease #9. GERD/reflux #10. Osteoarthritis #11. History of previous pneumonia #12. Chronic constipation #13. Right ear tinnitus #14. left lung pneumonia, with sputum cultures positive for pseudomonas aeruginosa Plan: Continue with current medical treatment, continue with antibiotics, nebulized treatments, no acute issues overnight, patient increasingly sleeping more, although clinically appears to be stable, still awaiting results of the right axillary node biopsy. Overall prognosis is extremely guarded. I performed a history & physical examination of the patient and discussed their management with my nurse practitioner, Cassidy Kessler. I reviewed the nurse practitioner's note and agree with the documented findings and plan of care. Lung sounds are positive for diminished breath sounds. The findings and the impression was discussed with the patient. I attest to the documentation by the nurse practitioner. Time with Patient: Less than 30
--- NOTE | 2019-02-15 17:43 | P.CONS ---
History of Present Illness - Reason for Consult Consult date: 02/15/19 Splenic mass, adenopathy on CT Requesting physician: Nohelia Weldon - Chief Complaint weakness, AMS - History of Present Illness Mr Burton is a pleasantly confused 88-year-old [place] male who was brought to the emergency department via EMS for progressive weakness, AMS, x 2-3 days, inability to walk anymore, his was unable to care for him any further. When asked if he was in pain and he said no, the rest of the information is derived from the chart. Patient has a history of COPD, hypothyroidism, hyperlipidemia, osteoarthritis. I did not see any past medical history of malignancy. On admission he had a brain CT that was within normal limits for his age, chest x-ray showed a large left upper lobe consolidation, this led to a CT of the chest, this revealed splenic mass, abdominal, retroperitoneal and right axillary adenopathy, patient had a core biopsy of the right axillary lymph node on 02/13. It is also noted he is a significantly elevated LDH. Review of Systems ROS unobtainable: due to mental status Past Medical History Past Medical History: Chest Pain / Angina, COPD, GERD/Reflux, Hyperlipidemia, Osteoarthritis (OA), Pneumonia, Thyroid Disorder Additional Past Medical History / Comment(s): Pt has mass R posterior upper back/shoulder for approximately 3 years and has chosen not to have it looked at by his physician, bronchitis, chronic back pain, vertigo, tinnitis R ear hypothyroid, constipation, UTI, constipation. 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 Past Anesthesia/Blood Transfusion Reactions: No Reported Reaction Past Psychological History: Unable to Obtain Smoking Status: Former smoker Past Alcohol Use History: Unable to Obtain Past Drug Use History: Unable to Obtain - Past Family History Father History Unknown: Yes Family Medical History: No Reported History Additional Family Medical History / Comment(s): Father was healthy and lived to be 83 yrs old. Mother History Unknown: Yes Family Medical History: No Reported History Additional Family Medical History / Comment(s): Mother was healthy and lived to be 95 yrs old. Medications and Allergies Home Medications Medication Instructions Recorded Confirmed Type Ezetimibe [Zetia] 10 mg PO DAILY 06/11/15 02/11/19 History Levothyroxine Sodium [Synthroid] 75 mcg PO DAILY 06/11/15 02/11/19 History Allergies Allergy/AdvReac Type Severity Reaction Status Date / Time No Known Allergies Allergy Verified 02/11/19 12:11 Physical Exam Vitals: Vital Signs Temp Pulse Pulse Resp BP Pulse Ox 02/15/19 16:29 100 16 02/15/19 16:21 101 H 16 02/15/19 12:00 103 H 95 02/15/19 11:40 98 02/15/19 11:27 100 02/15/19 08:00 97.4 F L 106 H 156/73 94 L 02/15/19 04:00 97.7 F 96 24 136/80 96 02/15/19 00:00 98.0 F 111 H 20 115/70 96 02/14/19 20:01 84 02/14/19 20:00 97.9 F 104 H 20 142/78 93 L 02/14/19 19:50 80 02/14/19 16:52 92 02/14/19 16:40 88 Intake and Output 02/15/19 02/15/19 02/15/19 06:59 14:59 22:59 Intake Total 300 Output Total 250 Balance 50 Intake: Oral 300 Output: Urine 250 Other: Voiding Method Urinal - Constitutional General appearance: average body habitus, disheveled, no acute distress - EENT lt eye ptosis - Neck Unable to palpate rt axillary LN, possibly some shotty adenopathy in the left neck, no other LN palpable - Respiratory Respiratory: bilateral: diminished, rales - Cardiovascular Rhythm: regular Heart sounds: normal: S1, S2 Abnormal Heart Sounds: systolic murmur leg Peripheral Edema: bilateral: None - Gastrointestinal left flank fullness, spleen was not palpable General gastrointestinal: normal bowel sounds, soft - Musculoskeletal Musculoskeletal: generalized weakness - Psychiatric Psychiatric: no A&O x's 3, no appropriate affect, no intact judgment & insight Results CBC & Chem 7: 02/15/19 06:15 02/15/19 06:15 Labs: Abnormal Lab Results - Last 24 Hours (Table) 02/15/19 02/15/19 Range/Units 06:15 06:15 WBC 11.1 H (3.8-10.6) k/uL Hgb 11.0 L (13.0-17.5) gm/dL Hct 36.5 L (39.0-53.0) % MCH 24.9 L (25.0-35.0) pg MCHC 30.1 L (31.0-37.0) g/dL RDW 16.5 H (11.5-15.5) % Neutrophils # 9.0 H (1.3-7.7) k/uL Chloride 108 H (98-107) mmol/L Calcium 11.6 H (8.4-10.2) mg/dL Albumin 3.0 L (3.5-5.0) g/dL Microbiology - Last 24 Hours (Table) 02/11/19 12:30 Blood Culture - Preliminary Blood No Growth after 96 hours 02/12/19 15:45 Gram Stain - Final Sputum Sputum Culture - Final Pseudomonas aeruginosa Maddi sp,not albicans/galbr Chest x-ray: report reviewed CT scan - chest: report reviewed Assessment and Plan (1) Adenopathy Narrative/Plan: Findings on imaging are certainly suspicious for malignant process. Patient is status post right axillary core lymph node biopsy, path pending. Will await biopsy results. Mental status is still altered so, will not order additional imaging at this time. Patient is an unfortunately poor health with a poor performance status at baseline. Once we have results we will be able to provide a diagnosis as well as prognosis and proceed from there if further testing is reasonable. Current Visit: Yes Status: Acute Priority: High Code(s): R59.1 - GENE RALIZED ENLARGED LYMPH NODES SNOMED Code(s): 80499968
[2019-02-15] MEDS ORDERED: ZOLEDRONIC ACID 4 MG in SODIUM CHLORIDE 0.9% 100 ML IV ONE (19:00)
[2019-02-16] MEDS: PIPERACILLIN-TAZOBACTAM 3.375 GM in SODIUM CHLORIDE 0.9% 100 ML IVPB SCH ×3 (00:35→16:18)
[2019-02-16] MEDS: LEVOTHYROXINE 75 MCG TAB PO SCH (05:56)
[2019-02-16 07:27] LABS: Anisocytosis Slight; Basophils # (A) 0.1 k/uL (0-0.2); Basophils % (A) 1 %; Eosinophils # (A) 0.6 k/uL (0-0.7); Eosinophils % (A) 5 %; HGB 12.2 gm/dL (13.0-17.5); Hypochromasia Slight; Lymphocytes # (A) 1.3 k/uL (1.0-4.8); Lymphocytes % (A) 10 %; MCH 25.7 pg (25.0-35.0); MCHC 31.2 g/dL (31.0-37.0); MCV 82.4 fL (80.0-100.0); Mean Platelet Volume 7.7; Monocytes # (A) 0.5 k/uL (0-1.0); Monocytes % (A) 4 %; Neutrophils # (A) 10.4 k/uL (1.3-7.7); Neutrophils % (A) 80 %; Platelet Count 205 k/uL (150-450); RBC 4.73 m/uL (4.30-5.90); RDW 16.6 % (11.5-15.5)
[2019-02-16 07:41] LABS: Calcium 12.2 mg/dL (8.4-10.2); Potassium 3.4 mmol/L (3.5-5.1); Total Protein 6.5 g/dL (6.3-8.2)
[2019-02-16] MEDS ORDERED: Potassium Replacement Protocol 1 EACH MISC MISCELLANE PRN (07:47)
[2019-02-16] MEDS: HEPARIN SODIUM,PORCINE 5,000 UNIT/ML 1 ML VIAL SQ SCH ×2 (07:49→20:51)
[2019-02-16] MEDS: EZETIMIBE 10 MG TAB PO SCH (07:50)
[2019-02-16] MEDS: MULTIVITAMINS, THERA 1 EACH TAB PO SCH (07:50)
[2019-02-16] MEDS: FAMOTIDINE 20 MG TAB PO SCH (07:50)
[2019-02-16] MEDS: IPRATROPIUM-ALBUTEROL 3 ML NEB INHALATION SCH ×4 (08:35→19:59)
[2019-02-16] MEDS: POTASSIUM CHLORIDE ER 20 MEQ TAB.ER PO SCH ×2 (09:17→11:07)
--- NOTE | 2019-02-16 13:24 | P.PN ---
Subjective Progress Note Date: 02/16/19 Principal diagnosis: Diffuse thoracic an extrathoracic adenopathy and the fungating mass on the right shoulder area with a possible mass in the left lung base rule out lymphoma versus metastatic carcinoma The patient is seen today 02/16/2019 in follow-up on the regular medical floor. He is currently sitting up in a chair at the bedside. Awake and alert. He remains quite weak and frail. Appetite remains poor. He is maintaining O2 saturations in the 90s on 2 L/m per nasal cannula. He is afebrile. Sputum culture was positive for pseudomonas aeruginosa along with Maddi species. White count 13.0. Hemoglobin 12.2. Creatinine 1.12. He remains on DuoNeb inhalations, Zosyn. Pathology results still pending. Objective - Vital Signs Vital signs: Vital Signs Temp 98 F 02/16/19 11:56 Pulse 111 H 02/16/19 11:56 Resp 16 02/16/19 11:56 BP 112/70 02/16/19 11:56 Pulse Ox 96 02/16/19 11:56 Intake & Output 02/15/19 02/16/19 02/16/19 18:59 06:59 18:59 Intake Total 300 200 Output Total 250 500 Balance 50 -300 Intake: Intake, IV Titration 200 Amount Piperacillin-Tazobactam 3 100 .375 gm In Sodium Chloride 0.9% 100 ml @ 25 mls/hr IVPB Q8HR [facility] Rx# :[id number] Zoledronic Acid 4 mg In 100 Sodium Chloride 0.9% 100 ml @ 315 mls/hr IV ONCE ONE Rx#:[id number] Oral 300 Output: Urine 250 500 Other: Voiding Method Urinal Urinal Diaper # Voids 3 - Exam GENERAL EXAM: Drowsy 88-year-old male patient, who is a poor historian, 2 L of oxygen currently up in a chair at the bedside. HEAD: Normocephalic/atraumatic. EYES: Normal reaction of pupils, equal size. Conjunctiva pink, sclera white. NOSE: Clear with pink turbinates. THROAT: No erythema or exudates. NECK: No masses, no JVD, no thyroid enlargement, no adenopathy. CHEST: No chest wall deformity. Symmetrical expansion. LUNGS: Equal air entry with no crackles, wheeze, rhonchi or dullness. Diminished sounds bilaterally CVS: Regular rate and rhythm, normal S1 and S2, no gallops, no murmurs, no rubs ABDOMEN: Soft, nontender. No hepatosplenomegaly, normal bowel sounds, no guarding or rigidity. EXTREMITIES: No clubbing, no edema, no cyanosis, 2+ pulses and upper and lower extremities. MUSCULOSKELETAL: Muscle strength and tone normal. SPINE: No scoliosis or deformity SKIN: Large fungating ulcerated mass on the right shoulder covered with a dressing CENTRAL NERVOUS SYSTEM: No focal deficits, tone is normal in all 4 extremities. PSYCHIATRIC: Alert. Appropriate affect. Intact judgment and insight. - Labs CBC & Chem 7: 02/16/19 07:06 02/16/19 07:06 Labs: Abnormal Lab Results - Last 24 Hours (Table) 02/16/19 02/16/19 Range/Units 07:06 07:06 WBC 13.0 H (3.8-10.6) k/uL Hgb 12.2 L (13.0-17.5) gm/dL RDW 16.6 H (11.5-15.5) % Neutrophils # 10.4 H (1.3-7.7) k/uL Potassium 3.4 L (3.5-5.1) mmol/L Chloride 109 H (98-107) mmol/L BUN 21 H (9-20) mg/dL Calcium 12.2 H (8.4-10.2) mg/dL Albumin 3.0 L (3.5-5.0) g/dL Microbiology - Last 24 Hours (Table) 02/11/19 12:30 Blood Culture - Preliminary Blood No Growth after 96 hours Assessment and Plan Assessment: #1. Diffuse thoracic and extrathoracic adenopathy, fungating mass in the right shoulder area, possible mass in the left lung base, rule out lymphoma versus metastatic carcinoma #2. Rule out lung cancer #3. Release history of tobacco use #4. Right axillary adenopathy, reevaluated by interventional radiology #5. History of hyperlipidemia #6. History of hypothyroidism #7. History of chest pain/angina pectoris #8. Chronic obstructive pulmonary disease #9. GERD/reflux #10. Osteoarthritis #11. History of previous pneumonia #12. Chronic constipation #13. Right ear tinnitus #14. left lung pneumonia, with sputum cultures positive for pseudomonas aeruginosa #15 Poor overall functional status based on the above-mentioned multiple comorbidities Plan: The patient was seen and evaluated by Dr. Oliveira. He is currently stable from the pulmonary standpoint. Pathology still pending. We'll continue with Zosyn and nebulized treatments. He is currently up in a chair at the bedside. Increase his activity as tolerated. His overall prognosis is quite poor. The plan is for discharge to [facility] once cleared medically. I, the cosigning physician, performed a history & physical examination of the patient. Lungs sounds are clear, diminished. Maintaining good O2 saturations in the 90s on 2 L/m per nasal cannula. I discussed the assessment and plan of care with my nurse practitioner, Yasemin Mathew. I attest to the above note as dictated b y .
--- NOTE | 2019-02-16 13:28 | P.PN ---
Subjective Progress Note Date: 02/16/19 This is an 88-year-old male patient who presented to the hospital with complaints of generalized weakness with increased altered mental status changes. Patient does report he's had a cough over the past few days patient is a poor historian. No family at bedside. History obtained from records. Patient does have past medical history of chest pain, COPD, GERD, hyperlipidemia, osteoarthritis, pneumonia thyroid disorder. Patient also has abnormal growths to right shoulder with drainage. Patient reports he's had this for [address] completed showing no acute intracranial hemorrhage, mass effect or midline shift seen. Chest x-ray completed showing bibasilar infiltrate and small effusion with large area of consolidation left upper lobe. Correlate for pneumonia underlying neoplasm not excluded. Patient started on Rocephin and azithromycin for pneumonia. Sputum culture ordered. Lactic acid elevated at 2.9. At this time patient is resting comfortably in bed. Patient denies chest pain or shortness of breath. Patient denies nausea vomiting or diarrhea. Patient denies any urinary burning or frequency On 02/12/2019 patient is alert and oriented 2 confused at times resting comf ortably bed is at bedside. Dr. cortes has been consulted for surgical consult in regards to right shoulder abscess for possible biopsy. CT of chest also ordered per pulmonary services. Per patient's requesting patient may be a DO NOT RESUSCITATE. Patient still having productive cough. Patient denies chest pain. Patient denies nausea vomiting or diarrhea. patient denies any urinary burning or frequency On 02/13/2019 patient is alert slightly confused in no apparent distress, had po or oral intake today, otherwise he denies any complaints there is no fever or chills no headache or dizziness no chest pain no shortness of breath, no nausea or vomiting no abdominal pain no diarrhea and no urinary symptoms On 02/14/2019 patient remains slightly confused. Patient underwent lymph node biopsy ultrasound. Awaiting culture. Patient still having non productive cough. At this time patient denies chest pain or shortness of breath. Patient denies nausea vomiting or diarrhea. Patient denies any urinary burning or frequency on 02/15/2019 patient is resting comfortably in bed. pathology on biopsy still pending. antibiotics switched to Zosyn per pulmonary. Oncology services have been consulted.at this time patient denies chest pain. Patient denies nausea vomiting or diarrhea. Patient denies any urinary burning or frequency. On 02/16/2019 patient was seen and examined on the medical floor he is somnolent in no apparent distress, case was discussed in detail with patient's , at this time patient has generalized weakness otherwise no specific complaints. wishes at this time to continue was scored status as no code, continue IV antibiotic and other treatments, awaiting biopsy results, when biopsy results are available she may decide about comfort measures only and hospice care. Objective - Vital Signs Vital signs: Vital Signs Temp 98 F 02/16/19 11:56 Pulse 111 H 02/16/19 11:56 Resp 16 02/16/19 11:56 BP 112/70 02/16/19 11:56 Pulse Ox 96 02/16/19 11:56 Intake & Output 02/15/19 02/16/19 02/16/19 18:59 06:59 18:59 Intake Total 300 200 Output Total 250 500 Balance 50 -300 Intake: Intake, IV Titration 200 Amount Piperacillin-Tazobactam 3 100 .375 gm In Sodium Chloride 0.9% 100 ml @ 25 mls/hr IVPB Q8HR [facility] Rx# :[id number] Zoledronic Acid 4 mg In 100 Sodium Chloride 0.9% 100 ml @ 315 mls/hr IV ONCE ONE Rx#:[id number] Oral 300 Output: Urine 250 500 Other: Voiding Method Urinal Urinal Diaper # Voids 3 - Exam Head normocephalic and atraumatic Neck supple no JVD no goiter Lungs diminished bilaterally Heart regular rate and rhythm S1-S2, no rub or gallop Abdomen is soft nontender nondistended positive bowel sounds no hepatosplenomegaly Extremities no edema no cyanosis or clubbing Neuro alert and orientated to 3 large ,abnormal growths noted to right shoulder with serosanguineous drainage - Labs CBC & Chem 7: 02/16/19 07:06 02/16/19 07:06 Labs: Abnormal Lab Results - Last 24 Hours (Table) 02/16/19 02/16/19 Range/Units 07:06 07:06 WBC 13.0 H (3.8-10.6) k/uL Hgb 12.2 L (13.0-17.5) gm/dL RDW 16.6 H (11.5-15.5) % Neutrophils # 10.4 H (1.3-7.7) k/uL Potassium 3.4 L (3.5-5.1) mmol/L Chloride 109 H (98-107) mmol/L BUN 21 H (9-20) mg/dL Calcium 12.2 H (8.4-10.2) mg/dL Albumin 3.0 L (3.5-5.0) g/dL Microbiology - Last 24 Hours (Table) 02/11/19 12:30 Blood Culture - Preliminary Blood No Growth after 96 hours Assessment and Plan Plan: 1. Increased weakness and altered mental status likely secondary to pneumonia infection. Head CT completed showing no acute intracranial hemorrhage, mass effect or midline shift seen. Lactic acid 2. 9 repeat ordered per protocol 2. Left upper lobe pneumonia with elevated lactic acid sepsis present on admission. Chest x-ray completed showing bibasilar infiltrate and small effusion with large area of consolidation left upper lobe. Correlate for pneumonia. Underlying neoplasm not excluded. Sputum culture ordered. Patient started on azithromycin and Rocephin. Pulmonary service is consulted. CT of chest has been ordered per pulmonary services. antibiotics have been switched to Zosyn per infectious disease 3. Large growth noted to right shoulder with drainage. Per infectious disease right upper arm and shoulder area skin lesion with fungating wound highly suspicious for malignancy. Cultures have been ordered general surgeon consult for possible biopsy to rule out malignancy. Local wound care with Aquacel silver dressing to be changed every 48 hours. Per surgical services patient currently refusing biopsy of right shoulder mass. 4. Diffuse thoracic and extrathoracic edema the, fungating mass in the right shoulder area possible mass in left lung base. Per pulmonary rule out lymphoma versus metastatic carcinoma. Per pulmonary IR has been consulted for biopsy the right axillary nodule. Biopsy completed. Ultrasound of chest has been reviewed and pleural effusion pocket only measuring 3.3 planes for thoracentesis at this time. 5. History of COPD 6. History of angina 7. History of hyperlipidemia. Statin resumed 8. History of hypothyroidism. Continue Synthroid. TSH level 2.490 9. History of tinnitus 10. 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 Per patient's patient worked [employer] on for multiple years. 11. Hypokalemia. Potassium 3.4 replacement protocol. DVT prophylaxis heparin. GI prophylaxis Pepcid Pulmonary, oncology, surgical services and infectious disease service following antibiotics Zosyn Pathology from biopsy pending social work consulted Jeannie upon discharge
[2019-02-16 18:32] LABS: % Iron Saturation 9.78 (15.00-50.00)
[2019-02-16 18:44] LABS: Ferritin 911.8 ng/mL (22.0-322.0)
[2019-02-17] MEDS: PIPERACILLIN-TAZOBACTAM 3.375 GM in SODIUM CHLORIDE 0.9% 100 ML IVPB SCH ×4 (00:05→23:11)
[2019-02-17] MEDS: LEVOTHYROXINE 75 MCG TAB PO SCH (05:44)
[2019-02-17 06:03] LABS: Anisocytosis Slight; Basophils # (A) 0.1 k/uL (0-0.2); Basophils % (A) 0 %; Eosinophils # (A) 0.6 k/uL (0-0.7); Eosinophils % (A) 5 %; HGB 11.8 gm/dL (13.0-17.5); Hypochromasia Marked; Lymphocytes # (A) 1.2 k/uL (1.0-4.8); Lymphocytes % (A) 10 %; MCH 25.9 pg (25.0-35.0); MCHC 30.3 g/dL (31.0-37.0); MCV 85.6 fL (80.0-100.0); Monocytes # (A) 0.6 k/uL (0-1.0); Monocytes % (A) 4 %; Neutrophils # (A) 10.2 k/uL (1.3-7.7); Neutrophils % (A) 79 %; Platelet Count 187 k/uL (150-450); RBC 4.56 m/uL (4.30-5.90); RDW 16.3 % (11.5-15.5)
[2019-02-17 06:13] LABS: Albumin 2.9 g/dL (3.5-5.0); Calcium 11.8 mg/dL (8.4-10.2); Potassium 3.4 mmol/L (3.5-5.1); Total Bilirubin 0.9 mg/dL (0.2-1.3); Total Protein 6.3 g/dL (6.3-8.2)
[2019-02-17] MEDS: IPRATROPIUM-ALBUTEROL 3 ML NEB INHALATION SCH ×4 (08:44→19:33)
[2019-02-17] MEDS ORDERED: HEPARIN SODIUM,PORCINE 5,000 UNIT/ML 1 ML VIAL ONE (08:59)
[2019-02-17] MEDS ORDERED: FAMOTIDINE 20 MG TAB ONE (08:59)
--- NOTE | 2019-02-17 10:51 | P.PN ---
Subjective Progress Note Date: 02/17/19 Principal diagnosis: Diffuse thoracic an extrathoracic adenopathy and the fungating mass on the right shoulder area with a possible mass in the left lung base rule out lymphoma versus metastatic carcinoma The patient is seen today 02/16/2019 in follow-up on the regular medical floor. He is currently sitting up in a chair at the bedside. Awake and alert. He remains quite weak and frail. Appetite remains poor. He is maintaining O2 saturations in the 90s on 2 L/m per nasal cannula. He is afebrile. Sputum culture was positive for pseudomonas aeruginosa along with Maddi species. White count 13.0. Hemoglobin 12.2. Creatinine 1.12. He remains on DuoNeb inhalations, Zosyn. Pathology results still pending. The patient is seen today 02/17/2019 in follow-up on the regular medical floor. Currently resting fairly comfortably in bed. Awake and alert in no acute d istress. He is maintaining O2 saturations in the low 90s on 3 L/m per nasal cannula. She's afebrile. Hemodynamically stable. Sputum culture positive for pseudomonas aeruginosa. Blood culture reveals no growth. White count 13.0. Hemoglobin 11.8. Creatinine 1.14. He remains on Zosyn and bronchodilators. Objective - Vital Signs Vital signs: Vital Signs Temp 98.3 F 02/17/19 05:14 Pulse 92 02/17/19 08:44 Resp 16 02/17/19 05:14 BP 127/66 02/17/19 05:14 Pulse Ox 93 L 02/17/19 05:14 Intake & Output 02/16/19 02/17/19 02/17/19 18:59 06:59 18:59 Intake Total 520 200 Balance 520 200 Intake: Intake, IV Titration 100 200 Amount Piperacillin-Tazobactam 3 100 200 .375 gm In Sodium Chloride 0.9% 100 ml @ 25 mls/hr IVPB Q8HR [facility] Rx# :[id number] Oral 420 Other: Voiding Method Urinal Urinal Urinal Diaper Diaper Diaper # Voids 2 2 # Bowel Movements 0 - Exam GENERAL EXAM: Alert frail cachectic 88-year-old male patient, who is a poor historian, 3 L of oxygen currently up in a chair at the bedside. HEAD: Normocephalic/atraumatic. EYES: Normal reaction of pupils, equal size. Conjunctiva pink, sclera white. NOSE: Clear with pink turbinates. THROAT: No erythema or exudates. NECK: No masses, no JVD, no thyroid enlargement, no adenopathy. CHEST: No chest wall deformity. Symmetrical expansion. LUNGS: Equal air entry with few scattered rhonchi. Diminished sounds bilaterally CVS: Regular rate and rhythm, normal S1 and S2, no gallops, no murmurs, no rubs ABDOMEN: Soft, nontender. No hepatosplenomegaly, normal bowel sounds, no guarding or rigidity. EXTREMITIES: No clubbing, no edema, no cyanosis, 2+ pulses and upper and lower extremities. MUSCULOSKELETAL: Muscle strength and tone normal. SPINE: No scoliosis or deformity SKIN: Large fungating ulcerated mass on the right shoulder covered with a dressing CENTRAL NERVOUS SYSTEM: No focal deficits, tone is normal in all 4 extremities. PSYCHIATRIC: Alert. Appropriate affect. Intact judgment and insight. - Labs CBC & Chem 7: 02/17/19 05:38 02/17/19 05:38 Labs: Abnormal Lab Results - Last 24 Hours (Table) 02/16/19 02/17/19 02/17/19 Range/Units 07:06 05:38 05:38 WBC 13.0 H (3.8-10.6) k/uL Hgb 11.8 L (13.0-17.5) gm/dL MCHC 30.3 L (31.0-37.0) g/dL RDW 16.3 H (11.5-15.5) % Neutrophils # 10.2 H (1.3-7.7) k/uL Potassium 3.4 L (3.5-5.1) mmol/L Chloride 111 H (98-107) mmol/L BUN 25 H (9-20) mg/dL Calcium 11.8 H (8.4-10.2) mg/dL Iron 18 L (65-175) ug/dL TIBC 184 L (228-460) ug/dL % Saturation 9.78 L (15.00-50.00) Ferritin 911.8 H (22.0-322.0) ng/mL Albumin 2.9 L (3.5-5.0) g/dL Vitamin B12 993.0 H (200.0-944.0) pg/mL Microbiology - Last 24 Hours (Table) 02/11/19 12:30 Blood Culture - Preliminary Blood No Growth after 120 hours Assessment and Plan Assessment: #1. Diffuse thoracic and extrathoracic adenopathy, fungating mass in the right shoulder area, possible mass in the left lung base, rule out lymphoma versus metastatic carcinoma #2. Rule out lung cancer #3. Release history of tobacco use #4. Right axillary adenopathy, reevaluated by interventional radiology #5. History of hyperlipidemia #6. History of hypothyroidism #7. History of chest pain/angina pectoris #8. Chronic obstructive pulmonary disease #9. GERD/reflux #10. Osteoarthritis #11. History of previous pneumonia #12. Chronic constipation #13. Right ear tinnitus #14. left lung pneumonia, with sputum cultures positive for pseudomonas aeruginosa #15 Poor overall functional status based on the above-mentioned multiple comorbidities Plan: The patient was seen and evaluated by Dr. Oliveira. He is currently stable from the pulmonary standpoint. Pathology still pending. We'll continue with Zosyn and nebulized treatments. Increase his activity as tolerated. His overall prognosis is quite poor. The plan is for discharge to [facility] once cleared [facility]. I, the cosigning physician, performed a history & physical examination of the patient. Lungs sounds few scattered rhonchi, diminished. Maintaining good O2 saturations in the 90s on 3 L/m per nasal cannula. I discussed the assessment and plan of care with my nurse practitioner, Yasemin Mathew. I attest to the above note as dictated by her.
[2019-02-17] MEDS: HEPARIN SODIUM,PORCINE 5,000 UNIT/ML 1 ML VIAL SQ SCH ×2 (11:23→20:09)
[2019-02-17] MEDS: FAMOTIDINE 20 MG TAB PO SCH (11:23)
[2019-02-17] MEDS: EZETIMIBE 10 MG TAB PO SCH (11:23)
[2019-02-17] MEDS: MULTIVITAMINS, THERA 1 EACH TAB PO SCH (11:23)
[2019-02-17] MEDS: POTASSIUM CHLORIDE 10 MEQ in WATER FOR INJECTION 1 100ML.BAG IVPB SCH ×4 (11:25→15:25)
--- NOTE | 2019-02-17 15:03 | P.PN ---
Subjective Progress Note Date: 02/17/19 This is an 88-year-old male patient who presented to the hospital with complaints of generalized weakness with increased altered mental status changes. Patient does report he's had a cough over the past few days patient is a poor historian. No family at bedside. History obtained from records. Patient does have past medical history of chest pain, COPD, GERD, hyperlipidemia, osteoarthritis, pneumonia thyroid disorder. Patient also has abnormal growths to right shoulder with drainage. Patient reports he's had this for [address] completed showing no acute intracranial hemorrhage, mass effect or midline shift seen. Chest x-ray completed showing bibasilar infiltrate and small effusion with large area of consolidation left upper lobe. Correlate for pneumonia underlying neoplasm not excluded. Patient started on Rocephin and azithromycin for pneumonia. Sputum culture ordered. Lactic acid elevated at 2.9. At this time patient is resting comfortably in bed. Patient denies chest pain or shortness of breath. Patient denies nausea vomiting or diarrhea. Patient denies any urinary burning or frequency On 02/12/2019 patient is alert and oriented 2 confused at times resting comf ortably bed is at bedside. Dr. cortes has been consulted for surgical consult in regards to right shoulder abscess for possible biopsy. CT of chest also ordered per pulmonary services. Per patient's requesting patient may be a DO NOT RESUSCITATE. Patient still having productive cough. Patient denies chest pain. Patient denies nausea vomiting or diarrhea. patient denies any urinary burning or frequency On 02/13/2019 patient is alert slightly confused in no apparent distress, had po or oral intake today, otherwise he denies any complaints there is no fever or chills no headache or dizziness no chest pain no shortness of breath, no nausea or vomiting no abdominal pain no diarrhea and no urinary symptoms On 02/14/2019 patient remains slightly confused. Patient underwent lymph node biopsy ultrasound. Awaiting culture. Patient still having non productive cough. At this time patient denies chest pain or shortness of breath. Patient denies nausea vomiting or diarrhea. Patient denies any urinary burning or frequency on 02/15/2019 patient is resting comfortably in bed. pathology on biopsy still pending. antibiotics switched to Zosyn per pulmonary. Oncology services have been consulted.at this time patient denies chest pain. Patient denies nausea vomiting or diarrhea. Patient denies any urinary burning or frequency. On 02/16/2019 patient was seen and examined on the medical floor he is somnolent in no apparent distress, case was discussed in detail with patient's , at this time patient has generalized weakness otherwise no specific complaints. wishes at this time to continue was scored status as no code, continue IV antibiotic and other treatments, awaiting biopsy results, when biopsy results are available she may decide about comfort measures only and hospice care. on 02/17/2019 patient was s examined on the medical floor he remains weak, he has very poor oral intake, he denies any complaints at this time, is at bedside, at this time we are still awaiting pathology report to decide further management course, patient cannot go home due to severe weakness and his is and able to take care for him, he will need to go to a [facility] we are awaiting pathology report to decide regarding possible hospice care. Objective - Vital Signs Vital signs: Vital Signs Temp 97.4 F L 02/17/19 12:42 Pulse 93 02/17/19 12:42 Resp 15 02/17/19 12:42 BP 117/73 02/17/19 12:42 Pulse Ox 92 L 02/17/19 12:42 Intake & Output 02/16/19 02/17/19 02/17/19 18:59 06:59 18:59 Intake Total 520 200 Balance 520 200 Intake: Intake, IV Titration 100 200 Amount Piperacillin-Tazobactam 3 100 200 .375 gm In Sodium Chloride 0.9% 100 ml @ 25 mls/hr IVPB Q8HR [facility] Rx# :[id number] Oral 420 Other: Voiding Method Urinal Urinal Urinal Diaper Diaper Diaper # Voids 2 2 # Bowel Movements 0 - Exam Head normocephalic and atraumatic Neck supple no JVD no goiter Lungs diminished bilaterally Heart regular rate and rhythm S1-S2, no rub or gallop Abdomen is soft nontender nondistended positive bowel sounds no hepatosplenomegaly Extremities no edema no cyanosis or clubbing Neuro alert and orientated to 3 large ,abnormal growths noted to right shoulder with serosanguineous drainage - Labs CBC & Chem 7: 02/17/19 05:38 02/17/19 05:38 Labs: Abnormal Lab Results - Last 24 Hours (Table) 02/16/19 02/17/19 02/17/19 Range/Units 07:06 05:38 05:38 WBC 13.0 H (3.8-10.6) k/uL Hgb 11.8 L (13.0-17.5) gm/dL MCHC 30.3 L (31.0-37.0) g/dL RDW 16.3 H (11.5-15.5) % Neutrophils # 10.2 H (1.3-7.7) k/uL Potassium 3.4 L (3.5-5.1) mmol/L Chloride 111 H (98-107) mmol/L BUN 25 H (9-20) mg/dL Calcium 11.8 H (8.4-10.2) mg/dL Iron 18 L (65-175) ug/dL TIBC 184 L (228-460) ug/dL % Saturation 9.78 L (15.00-50.00) Ferritin 911.8 H (22.0-322.0) ng/mL Albumin 2.9 L (3.5-5.0) g/dL Vitamin B12 993.0 H (200.0-944.0) pg/mL Microbiology - Last 24 Hours (Table) 02/11/19 12:30 Blood Culture - Final Blood No Growth after 144 hours Assessment and Plan Plan: 1. Increased weakness and altered mental status likely secondary to pneumonia infection. Head CT completed showing no acute intracranial hemorrhage, mass effect or midline shift seen. Lactic acid 2. 9 repeat ordered per protocol 2. Left upper lobe pneumonia with elevated lactic acid sepsis present on admission. Chest x-ray completed showing bibasilar infiltrate and small effusion with large area of consolidation left upper lobe. Correlate for pneumonia. Underlying neoplasm not excluded. Sputum culture ordered. Patient started on azithromycin and Rocephin. Pulmonary service is consulted. CT of chest has been ordered per pulmonary services. antibiotics have been switched to Zosyn per infectious disease 3. Large growth noted to right shoulder with drainage. Per infectious disease right upper arm and shoulder area skin lesion with fungating wound highly suspicious for malignancy. Cultures have been ordered general surgeon consult for possible biopsy to rule out malignancy. Local wound care with Aquacel silver dressing to be changed every 48 hours. Per surgical services patient currently refusing biopsy of right shoulder mass. 4. Diffuse thoracic and extrathoracic edema the, fungating mass in the right shoulder area possible mass in left lung base. Per pulmonary rule out lymphoma versus metastatic carcinoma. Per pulmonary IR has been consulted for biopsy the right axillary nodule. Biopsy completed. Ultrasound of chest has been reviewed and pleural effusion pocket only measuring 3.3 planes for thoracentesis at this time. 5. History of COPD 6. History of angina 7. History of hyperlipidemia. Statin resumed 8. History of hypothyroidism. Continue Synthroid. TSH level 2.490 9. History of tinnitus 10. 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 11. Hypokalemia. Potassium 3.4 replacement protocol. DVT prophylaxis heparin. GI prophylaxis Pepcid Pulmonary, oncology, surgical services and infectious disease service following antibiotics Lorisyn Pathology from biopsy pending social work consulted Jeannie upon discharge
[2019-02-17] MEDS: MORPHINE SULFATE 4 MG/ML SYRINGE IV PRN (15:20)
--- NOTE | 2019-02-17 19:16 | P.PN ---
Subjective Progress Note Date: 02/17/19 Principal diagnosis: sshoulder mass, adenopathy Objective - Vital Signs Vital signs: Vital Signs Temp 97.4 F L 02/17/19 12:42 Pulse 96 02/17/19 16:41 Resp 15 02/17/19 12:42 BP 117/73 02/17/19 12:42 Pulse Ox 92 L 02/17/19 12:42 Intake & Output 02/17/19 02/17/19 02/18/19 06:59 18:59 06:59 Intake Total 200 Balance 200 Intake: Intake, IV Titration 200 Amount Piperacillin-Tazobactam 3 200 .375 gm In Sodium Chloride 0.9% 100 ml @ 25 mls/hr IVPB Q8HR [facility] Rx# :[id number] Other: Voiding Method Urinal Urinal Diaper Diaper # Voids 2 3 # Bowel Movements 0 - Exam The patient appeared well nourished and normally developed. Vital signs as documented. Head exam is unremarkable. No scleral icterus or corneal arcus noted. Neck is without jugular venous distension, thyromegaly, or carotid bruits. Carotid upstrokes are brisk bilaterally. Lungs are clear to auscultation and percussion. Cardiac exam reveals the PMI to be normally sized and situated. Rhythm is regular. First and second heart sounds normal. No murmurs, rubs or gallops. Abdominal exam reveals normal bowel sounds, no masses, no organomegaly and no aortic enlargement. Extremities are nonedematous and both femoral and pedal pulses are normal. mass on the right shoulder suspicious for malignancy - Labs CBC & Chem 7: 02/17/19 05:38 02/17/19 18:14 Labs: Abnormal Lab Results - Last 24 Hours (Table) 02/17/19 02/17/19 Range/Units 05:38 05:38 WBC 13.0 H (3.8-10.6) k/uL Hgb 11.8 L (13.0-17.5) gm/dL MCHC 30.3 L (31.0-37.0) g/dL RDW 16.3 H (11.5-15.5) % Neutrophils # 10.2 H (1.3-7.7) k/uL Potassium 3.4 L (3.5-5.1) mmol/L Chloride 111 H (98-107) mmol/L BUN 25 H (9-20) mg/dL Calcium 11.8 H (8.4-10.2) mg/dL Albumin 2.9 L (3.5-5.0) g/dL Microbiology - Last 24 Hours (Table) 02/11/19 12:30 Blood Culture - Final Blood No Growth after 144 hours Assessment and Plan Assessment: Mr Burton is a pleasantly confused 88-year-old Greek male who was brought to the emergency department via EMS for progressive weakness, AMS, x 2-3 days, inability to walk anymore, his was unable to care for him any further. When asked if he was in pain and he said no, the rest of the information is derived from the chart. Patient has a history of COPD, hypothyroidism, hyperlipidemia, osteoarthritis. I did not see any past medical history of malignancy. On admission he had a brain CT that was within normal limits for his age, chest x-ray showed a large left upper lobe consolidation, this led to a CT of the chest, this revealed splenic mass, abdominal, retroperitoneal and right axillary adenopathy, patient had a core biopsy of the right axillary lymph node on 02/13. It is also noted he is a significantly elevated LDH. 1. Large right shoulder mass/growth fungating, with drainage suspicious for malignancy with extensive lymphadenopathy possible lung cancer: Findings on imaging are certainly suspicious for malignant process. Patient is status post right axillary core lymph node biopsy, path pending. Will await biopsy results. Mental status is still altered so, will not order additional imaging at this time. Patient is an unfortunately poor health with a poor performance status at baseline. - patient will need further evaluation after biopsy results, for further staging and treatment options. - However given the poor ECOG performance, comorbid conditions and altered mental sensorium prognosis seems to be very poor. might not be a candidate for treatment 2. Sepsis with Altered mental sensorium likely secondary to infection sepsis/pneumonia: possible metastatic disease. 3. History of COPD, angina, hyperlipidemia, hypothyroidism, electrolyte imbalance - Surgery consulted for biopsy. However patient/family has been refusing. 4. Leukocytosis secondary to infection 5. Anemia normocytic: - consistent with iron deficiency with low iron levels with presentation of all the ferritin is elevated due to inflammation, B12 is normal. - suggest ferrous sulfate supplementation when he is able to swallow pills. 6. Malnourishment with low albumin. 7. Very poor ECOG performance. Overall prognosis poor. Thank you for allowing me to participate in the care [place] [id number], [address] [place] [address] Office: [phone] Time with Patient: Greater than 30
[2019-02-18 06:47] LABS: Anisocytosis Slight; Basophils # (A) 0.1 k/uL (0-0.2); Basophils % (A) 1 %; Eosinophils # (A) 0.7 k/uL (0-0.7); Eosinophils % (A) 4 %; HCT 39.2 % (39.0-53.0); HGB 11.8 gm/dL (13.0-17.5); Hypochromasia Marked; Lymphocytes # (A) 1.5 k/uL (1.0-4.8); Lymphocytes % (A) 9 %; MCH 25.5 pg (25.0-35.0); MCHC 30.2 g/dL (31.0-37.0); MCV 84.7 fL (80.0-100.0); Mean Platelet Volume 8.1; Monocytes # (A) 0.6 k/uL (0-1.0); Monocytes % (A) 4 %; Neutrophils # (A) 13.7 k/uL (1.3-7.7); Neutrophils % (A) 82 %; Platelet Count 193 k/uL (150-450); RBC 4.63 m/uL (4.30-5.90); RDW 16.3 % (11.5-15.5); WBC 16.7 k/uL (3.8-10.6)
[2019-02-18 07:03] LABS: Calcium 11.3 mg/dL (8.4-10.2); Potassium 3.7 mmol/L (3.5-5.1); Total Protein 6.4 g/dL (6.3-8.2)
[2019-02-18] MEDS: IPRATROPIUM-ALBUTEROL 3 ML NEB INHALATION SCH ×4 (09:05→21:27)
[2019-02-18] MEDS: EZETIMIBE 10 MG TAB PO SCH (09:21)
[2019-02-18] MEDS: LEVOTHYROXINE 75 MCG TAB PO SCH (09:21)
[2019-02-18] MEDS: MULTIVITAMINS, THERA 1 EACH TAB PO SCH (09:22)
[2019-02-18] MEDS: HEPARIN SODIUM,PORCINE 5,000 UNIT/ML 1 ML VIAL SQ SCH ×2 (09:22→20:08)
[2019-02-18] MEDS: FAMOTIDINE 20 MG TAB PO SCH (09:22)
[2019-02-18] MEDS: PIPERACILLIN-TAZOBACTAM 3.375 GM in SODIUM CHLORIDE 0.9% 100 ML IVPB SCH ×3 (09:22→23:44)
--- NOTE | 2019-02-18 10:58 | CDI ---
Documentation Clarification Form Date: 02/18/2019 10:48:06 AM From: Christianne HintonHarrisonTAYLER mckinney, CCDS Admit Date: 02/11/2019 12:04:00 PM Patient Name: Brian Burton Visit Number: [id number] Discharge Date: ATTENTION: The Clinical Documentation Specialists (CDI) and [facility] Coding Staff appreciate your assistance in clarifying documentation. Please respond to the clarification below the line at the bottom and electronically sign. The CDI & [facility] Coding staff will review the response and follow-up if needed. Please note: Queries are made part of the Legal Health Record. If you have any questions, please contact the author of this message via ITS. Dr. Roland Lacey: Per the 02/12 surgical consult: "Elderly white male, productive cough, not short of breath, no distress, appears malnourished." History/Risk Factors: COPD, GERD, Hyperlipidemia, Osteoarthritis, previous pneumonia, Hypothyroid, Clinical Indicators: Admitted with increased generalized weakness with increased altered mental status changes & cough. Diagnosed with pneumonia & has a large growth on his right shoulder. Labs: Hgb 11.3*, K 3.4*, Lactic Acid 2.9^^, Calcium 11.1^, Trops 0.043^^, 0.042^^, 0.043^^; Albumin 3.2*. Current BMI: 23.2 Nutritional assessment: Poor nutrition intake, consuming 25-50%, confused, reported weight loss. Treatment: Ensure supplement, IV fluid bolus, IV Azithromycin, IV Rocephin, IV Ms, INH, Heparin sq. Procedure: IR biopsy of right axillary, path pending. In your professional opinion, can you please clarify if these findings signify one of the following conditions? Mild Protein-Calorie Malnutrition Moderate Protein-Calorie Malnutrition Severe Protein-Calorie Malnutrition Other condition, please specify Unable to determine (Last Revision: September 2018) patient with at least moderate protein calorie malnutrition MTDD
--- NOTE | 2019-02-18 11:09 | P.PN ---
Subjective Progress Note Date: 02/18/19 This is an 88-year-old male patient who presented to the hospital with complaints of generalized weakness with increased altered mental status changes. Patient does report he's had a cough over the past few days patient is a poor historian. No family at bedside. History obtained from records. Patient does have past medical history of chest pain, COPD, GERD, hyperlipidemia, osteoarthritis, pneumonia thyroid disorder. Patient also has abnormal growths to right shoulder with drainage. Patient reports he's had this for [address] completed showing no acute intracranial hemorrhage, mass effect or midline shift seen. Chest x-ray completed showing bibasilar infiltrate and small effusion with large area of consolidation left upper lobe. Correlate for pneumonia underlying neoplasm not excluded. Patient started on Rocephin and azithromycin for pneumonia. Sputum culture ordered. Lactic acid elevated at 2.9. At this time patient is resting comfortably in bed. Patient denies chest pain or shortness of breath. Patient denies nausea vomiting or diarrhea. Patient denies any urinary burning or frequency On 02/12/2019 patient is alert and oriented 2 confused at times resting comfo rtably bed is at bedside. Dr. cortes has been consulted for surgical consult in regards to right shoulder abscess for possible biopsy. CT of chest also ordered per pulmonary services. Per patient's requesting patient may be a DO NOT RESUSCITATE. Patient still having productive cough. Patient denies chest pain. Patient denies nausea vomiting or diarrhea. patient denies any urinary burning or frequency On 02/13/2019 patient is alert slightly confused in no apparent distress, had poor oral intake today, otherwise he denies any complaints there is no fever or chills no headache or dizziness no chest pain no shortness of breath, no nausea or vomiting no abdominal pain no diarrhea and no urinary symptoms On 02/14/2019 patient remains slightly confused. Patient underwent lymph node biopsy ultrasound. Awaiting culture. Patient still having non productive cough. At this time patient denies chest pain or shortness of breath. Patient denies nausea vomiting or diarrhea. Patient denies any urinary burning or frequency on 02/15/2019 patient is resting comfortably in bed. pathology on biopsy still pending. antibiotics switched to Zosyn per pulmonary. Oncology services have been consulted.at this time patient denies chest pain. Patient denies nausea vomiting or diarrhea. Patient denies any urinary burning or frequency On 02/16/2019 patient was seen and examined on the medical floor he is alert and oriented 3 in no apparent distress he is complaining of unsteadiness in his gait otherwise he denies any complaints there is no fever or chills no headache or dizziness no chest pain no shortness of breath no cough no nausea or vomiting no abdominal pain no diarrhea no burning with urination no frequency or urgency and no hematuria, no weakness or numbness in any of his extremity no change in vision or in speech. Biopsy result is still pending at this time. on 02/17/2019 patient was seen and examined on the medical floor he is alert and oriented 3 in no apparent distress he is complaining of burning with urination urine analysis ordered, he is still complaining of unsteadiness with his gait, otherwise there is no complaints there is no fever or chills no headache or dizziness no chest pain no shortness of breath no cough no nausea or vomiting no abdominal pain no diarrhea On 02/18/2019 patient alert and oriented. With intermittent confusion at times. Awaiting final pathology for further plan of care in regards to possible hospice. Patient remains on IV Zosyn for pneumonia. Pulmonary and oncology services are following. At this time patient denies chest pain or shortness of breath. Patient denies nausea vomiting or diarrhea. Patient denies any urinary burning or frequency Objective - Vital Signs Vital signs: Vital Signs Temp 97.5 F L 02/18/19 05:00 Pulse 96 02/18/19 09:18 Resp 16 02/18/19 05:00 BP 128/74 02/18/19 05:00 Pulse Ox 94 L 02/18/19 09:05 Intake & Output 02/17/19 02/18/19 02/18/19 18:59 06:59 18:59 Intake Total 100 Balance 100 Weight 63.2 kg Intake: Intake, IV Titration 100 Amount Piperacillin-Tazobactam 3 100 .375 gm In Sodium Chloride 0.9% 100 ml @ 25 mls/hr IVPB Q8HR [facility] Rx# :[id number] Other: Voiding Method Urinal Urinal Urinal Diaper Diaper Diaper # Voids 3 2 # Bowel Movements 0 - Exam Head normocephalic Neck supple Lungs diminished bilaterally Heart regular rate and rhythm S1-S2, no rub or gallop Abdomen is soft nontender nondistended positive bowel sounds no hepatosplenomegaly Extremities no edema Neuro alert and orientated to 3 large ,abnormal growths noted to right shoulder with serosanguineous drainage - Labs CBC & Chem 7: 02/18/19 06:24 02/18/19 06:24 Labs: Abnormal Lab Results - Last 24 Hours (Table) 02/18/19 02/18/19 Range/Units 06:24 06:24 WBC 16.7 H (3.8-10.6) k/uL Hgb 11.8 L (13.0-17.5) gm/dL MCHC 30.2 L (31.0-37.0) g/dL RDW 16.3 H (11.5-15.5) % Neutrophils # 13.7 H (1.3-7.7) k/uL Sodium 147 H (137-145) mmol/L Chloride 113 H (98-107) mmol/L BUN 26 H (9-20) mg/dL Calcium 11.3 H (8.4-10.2) mg/dL Albumin 3.0 L (3.5-5.0) g/dL Microbiology - Last 24 Hours (Table) 02/11/19 12:30 Blood Culture - Final Blood No Growth after 144 hours Assessment and Plan Assessment: 1. Increased weakness and altered mental status likely secondary to pneumonia infection. Head CT completed showing no acute intracranial hemorrhage, mass effect or midline shift seen. Lactic acid 2. 9 repeat ordered per protocol 2. Left upper lobe pneumonia with elevated lactic acid sepsis present on admission. Chest x-ray completed showing bibasilar infiltrate and small effusion with large area of consolidation left upper lobe. Correlate for pneumonia. Underlying neoplasm not excluded. Sputum culture ordered. Patient started on azithromycin and Rocephin. Pulmonary service is consulted. CT of chest has been ordered per pulmonary services. antibiotics have been switched to Zosyn per infectious disease 3. Large growth noted to right shoulder with drainage. Per infectious disease right upper arm and shoulder area skin lesion with fungating wound highly s uspicious for malignancy. Cultures have been ordered general surgeon consult for possible biopsy to rule out malignancy. Local wound care with Aquacel silver dressing to be changed every 48 hours. Per surgical services patient currently refusing biopsy of right shoulder mass. 4. Diffuse thoracic and extrathoracic edema the, fungating mass in the right shoulder area possible mass in left lung base. Per pulmonary rule out lymphoma versus metastatic carcinoma. Per pulmonary IR has been consulted for biopsy the right axillary nodule. Biopsy completed. Ultrasound of chest has been reviewed and pleural effusion pocket only measuring 3.3 planes for thoracentesis at this time. 5. History of COPD 6. History of angina 7. History of hyperlipidemia. Statin resumed 8. History of hypothyroidism. Continue Synthroid. TSH level 2.490 9. History of tinnitus 10. 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 11. Hypokalemia. Potassium 3.4 replacement protocol. Resolved DVT prophylaxis heparin. GI prophylaxis Pepcid Pulmonary, oncology, surgical services and infectious disease service following antibiotics Zosyn Pathology from biopsy pending social work consulted Jeannie upon discharge I performed an examination of the patient and discussed their management with the Nurse Practitioner. I have reviewed the Nurse Practitioner's notes and agree with the documented findings and plan of care
[2019-02-18] MEDS: POTASSIUM CHLORIDE 10 MEQ in WATER FOR INJECTION 1 100ML.BAG IVPB SCH ×2 (14:24→15:43)
--- NOTE | 2019-02-18 14:33 | P.PN ---
Subjective Progress Note Date: 02/18/19 Principal diagnosis: Diffuse thoracic an extrathoracic adenopathy and the fungating mass on the right shoulder area with a possible mass in the left lung base rule out lymphoma versus metastatic carcinoma On 02/13/2019 patient seen in follow-up on selective care unit, he is resting in bed, he is awake and alert, not appear to be in any acute distress, today his son and his are at the bedside, and he states that the right shoulder mass was never biopsied because patient with never allow anybody to biopsy it in the past. But the and a son do want necessary testing done to establish a diagnosis in regards to patient's mass on his right shoulder, and multiple abn ormal findings seen on the CT chest, and adenopathy. Patient is DO NOT RESUSCITATE, he is currently on a combination of antibiotics, Zithromax and Rocephin, nebulized bronchodilators, when necessary pain medications. His had no fever or chills, he remains on 2 L of oxygen pulse ox is 95-96%. Hemo dynamically stable. It is labs have been reviewed, showing white blood cell of 9.5, hemoglobin of 11.3, renal profile and electrolytes are unremarkable with exception of potassium which is low at 3.1, has been replaced per protocol. We consulted interventional radiology in regards to right axillary lymph node biopsy, and general surgery was consulted in regards to right shoulder mass biopsy. Ultrasound of the chest was completed showing only 3.3 cm pleural effusion pocket on the left. No plans for thoracentesis at this time. On 02/14/2019 patient is seen in follow-up on selective care unit, he is resting comfortably in bed, in no acute distress, lung sounds are clear to auscultation, no complaints of dyspnea. Vital signs are stable, patient underwent right axillary node biopsy by interventional radiology, results are pending. Patient has refused biopsy of his right shoulder mass. No thoracentesis plan at this time in view of a very small loculated pocket of pleural fluid in the left lung. Hemodynamically stable, no fever or chills, today's labs have been reviewed. sputum culture was positive for pseudomonas, and we will switch patient's antibiotic coverage from Zithromax and Rocephin to Zosyn.patient has been afebrile, he remains on 2 L of oxygen with a pulse ox of 97%. On 02/15/2019 patient seen in follow-up on selective care unit. Patient is sleeping in bed, his son is at the bedside, he states the patient has been sleeping a lot. Does not appear to be in any acute distress, he remains on oxygen at 2 L, his pulse ox is 94-96%, afebrile, hemodynamically stable, no specific complaints. Still awaiting the biopsy results of the right axillary lymph node. Sputum culture was positive for pseudomonas aeruginosa, patient remains on IV Zosyn, his been afebrile. Today's labs have been reviewed, showing white blood cell count of 11.1, hemoglobin of 11, sodium is 143, potassium is 3.6, chloride is 108, the rest of electrolytes and renal profile were within normal limits. On 02/18/2019 patient seen in follow-up on a regular medical surgical floor. He is arousable, but he is lethargic most of the time, appetite poor. patient wakes up to verbal stimulation, and answer simple questions, he denies any acute distress, denies any difficulty breathing, he remains on 2 L of oxygen with a pulse ox of 93%, he is afebrile, no cough or congestion, lung sounds are diminished bilaterally, no rhonchi or wheezing. Still awaiting results of the right axillary lymph node biopsy, patient had declined right shoulder mass biopsy. he was evaluated by medical oncology and patient is a poor candidate for any treatment. Objective - Vital Signs Vital signs: Vital Signs Temp 98 F 02/18/19 11:28 Pulse 102 H 02/18/19 11:28 Resp 17 02/18/19 11:28 BP 138/79 02/18/19 11:28 Pulse Ox 93 L 02/18/19 11:28 Intake & Output 02/17/19 02/18/19 02/18/19 18:59 06:59 18:59 Intake Total 100 Balance 100 Weight 63.2 kg Intake: Intake, IV Titration 100 Amount Piperacillin-Tazobactam 3 100 .375 gm In Sodium Chloride 0.9% 100 ml @ 25 mls/hr IVPB Q8HR [facility] Rx# :[id number] Other: Voiding Method Urinal Urinal Urinal Diaper Diaper Diaper # Voids 3 2 # Bowel Movements 0 - Exam GENERAL EXAM: Sleepy, 88-year-old white male, who is a poor historian, 2 L of oxygen with the process of 95% comfortable in no apparent distress. HEAD: Normocephalic/atraumatic. EYES: Normal reaction of pupils, equal size. Conjunctiva pink, sclera white. NOSE: Clear with pink turbinates. THROAT: No erythema or exudates. NECK: No masses, no JVD, no thyroid enlargement, no adenopathy. CHEST: No chest wall deformity. Symmetrical expansion. LUNGS: Equal air entry with no crackles, wheeze, rhonchi or dullness. Diminished sounds bilaterally CVS: Regular rate and rhythm, normal S1 and S2, no gallops, no murmurs, no rubs ABDOMEN: Soft, nontender. No hepatosplenomegaly, normal bowel sounds, no guarding or rigidity. EXTREMITIES: No clubbing, no edema, no cyanosis, 2+ pulses and upper and lower extremities. MUSCULOSKELETAL: Muscle strength and tone normal. SPINE: No scoliosis or deformity SKIN: Large fungating ulcerated mass on the right shoulder covered with a dressing CENTRAL NERVOUS SYSTEM: Alert and oriented -3. No focal deficits, tone is normal in all 4 extremities. PSYCHIATRIC: Alert and oriented -3. Appropriate affect. Intact judgment and insight. - Labs CBC & Chem 7: 02/18/19 06:24 02/18/19 06:24 Labs: Abnormal Lab Results - Last 24 Hours (Table) 02/18/19 02/18/19 Range/Units 06:24 06:24 WBC 16.7 H (3.8-10.6) k/uL Hgb 11.8 L (13.0-17.5) gm/dL MCHC 30.2 L (31.0-37.0) g/dL RDW 16.3 H (11.5-15.5) % Neutrophils # 13.7 H (1.3-7.7) k/uL Sodium 147 H (137-145) mmol/L Chloride 113 H (98-107) mmol/L BUN 26 H (9-20) mg/dL Calcium 11.3 H (8.4-10.2) mg/dL Albumin 3.0 L (3.5-5.0) g/dL Microbiology - Last 24 Hours (Table) 02/11/19 12:30 Blood Culture - Final Blood No Growth after 144 hours Assessment and Plan Plan: Assessment: #1. Diffuse thoracic and extrathoracic adenopathy, fungating mass in the right shoulder area, possible mass in the left lung base, rule out lymphoma versus metastatic carcinoma #2. Rule out lung cancer #3. Release history of tobacco use #4. Right axillary adenopathy, reevaluated by interventional radiology #5. History of hyperlipidemia #6. History of hypothyroidism #7. History of chest pain/angina pectoris #8. Chronic obstructive pulmonary disease #9. GERD/reflux #10. Osteoarthritis #11. History of previous pneumonia #12. Chronic constipation #13. Right ear tinnitus #14. left lung pneumonia, with sputum cultures positive for pseudomonas aeruginosa Plan: continue current medical treatment, awaiting results of the biopsy and the right axillary lymph node, no pulmonary complaints, vital signs are stable, however overall condition continues to decline, patient is sleeping most of the time, he is weak, he is not eating. He was found to be a poor candidate for any treatment. Overall prognosis is quite poor, however no pulmonary complaints at this time, underlying malignancy strongly suspected, however overall status is declining, recommend palliative care consultation. I performed a history & physical examination of the patient and discussed their management with my nurse practitioner, Cassidy Kessler. I reviewed the nurse practitioner's note and agree with the documented findings and plan of care. Lung sounds are positive for diminished breath sounds. The findings and the impression was discussed with the patient. I attest to the documentation by the nurse practitioner. Time with Patient: Less than 30
[2019-02-18] MEDS: MORPHINE SULFATE 4 MG/ML SYRINGE IV PRN (23:48)
[2019-02-19] MEDS: LEVOTHYROXINE 75 MCG TAB PO SCH (05:47)
[2019-02-19 07:57] LABS: Anisocytosis Slight; Basophils # (A) 0.1 k/uL (0-0.2); Basophils % (A) 0 %; Eosinophils # (A) 0.7 k/uL (0-0.7); Eosinophils % (A) 5 %; HCT 39.8 % (39.0-53.0); HGB 12.2 gm/dL (13.0-17.5); Hypochromasia Marked; Lymphocytes # (A) 1.3 k/uL (1.0-4.8); Lymphocytes % (A) 8 %; MCH 26.1 pg (25.0-35.0); MCHC 30.6 g/dL (31.0-37.0); MCV 85.4 fL (80.0-100.0); Mean Platelet Volume 8.2; Monocytes # (A) 0.6 k/uL (0-1.0); Monocytes % (A) 4 %; Neutrophils # (A) 12.5 k/uL (1.3-7.7); Neutrophils % (A) 81 %; Platelet Count 201 k/uL (150-450); RBC 4.66 m/uL (4.30-5.90); RDW 16.4 % (11.5-15.5); WBC 15.4 k/uL (3.8-10.6)
[2019-02-19 08:10] LABS: Calcium 10.9 mg/dL (8.4-10.2); Potassium 3.6 mmol/L (3.5-5.1); Total Bilirubin 0.8 mg/dL (0.2-1.3); Total Protein 6.4 g/dL (6.3-8.2)
[2019-02-19] MEDS: PIPERACILLIN-TAZOBACTAM 3.375 GM in SODIUM CHLORIDE 0.9% 100 ML IVPB SCH ×3 (08:42→23:15)
[2019-02-19] MEDS: EZETIMIBE 10 MG TAB PO SCH (08:43)
[2019-02-19] MEDS: FAMOTIDINE 20 MG TAB PO SCH (08:43)
[2019-02-19] MEDS: MULTIVITAMINS, THERA 1 EACH TAB PO SCH (08:43)
[2019-02-19] MEDS: HEPARIN SODIUM,PORCINE 5,000 UNIT/ML 1 ML VIAL SQ SCH ×2 (08:43→20:08)
[2019-02-19] MEDS: IPRATROPIUM-ALBUTEROL 3 ML NEB INHALATION SCH ×4 (09:06→21:13)
--- NOTE | 2019-02-19 12:27 | P.PN ---
Subjective Progress Note Date: 02/19/19 This is an 88-year-old male patient who presented to the hospital with complaints of generalized weakness with increased altered mental status changes. Patient does report he's had a cough over the past few days patient is a poor historian. No family at bedside. History obtained from records. Patient does have past medical history of chest pain, COPD, GERD, hyperlipidemia, osteoarthritis, pneumonia thyroid disorder. Patient also has abnormal growths to right shoulder with drainage. Patient reports he's had this for [address] completed showing no acute intracranial hemorrhage, mass effect or midline shift seen. Chest x-ray completed showing bibasilar infiltrate and small effusion with large area of consolidation left upper lobe. Correlate for pneumonia underlying neoplasm not excluded. Patient started on Rocephin and azithromycin for pneumonia. Sputum culture ordered. Lactic acid elevated at 2.9. At this time patient is resting comfortably in bed. Patient denies chest pain or shortness of breath. Patient denies nausea vomiting or diarrhea. Patient denies any urinary burning or frequency On 02/12/2019 patient is alert and oriented 2 confused at times resting comfo rtably bed is at bedside. Dr. cortes has been consulted for surgical consult in regards to right shoulder abscess for possible biopsy. CT of chest also ordered per pulmonary services. Per patient's requesting patient may be a DO NOT RESUSCITATE. Patient still having productive cough. Patient denies chest pain. Patient denies nausea vomiting or diarrhea. patient denies any urinary burning or frequency On 02/13/2019 patient is alert slightly confused in no apparent distress, had poor oral intake today, otherwise he denies any complaints there is no fever or chills no headache or dizziness no chest pain no shortness of breath, no nausea or vomiting no abdominal pain no diarrhea and no urinary symptoms On 02/14/2019 patient remains slightly confused. Patient underwent lymph node biopsy ultrasound. Awaiting culture. Patient still having non productive cough. At this time patient denies chest pain or shortness of breath. Patient denies nausea vomiting or diarrhea. Patient denies any urinary burning or frequency on 02/15/2019 patient is resting comfortably in bed. pathology on biopsy still pending. antibiotics switched to Zosyn per pulmonary. Oncology services have been consulted.at this time patient denies chest pain. Patient denies nausea vomiting or diarrhea. Patient denies any urinary burning or frequency On 02/16/2019 patient was seen and examined on the medical floor he is alert and oriented 3 in no apparent distress he is complaining of unsteadiness in his gait otherwise he denies any complaints there is no fever or chills no headache or dizziness no chest pain no shortness of breath no cough no nausea or vomiting no abdominal pain no diarrhea no burning with urination no frequency or urgency and no hematuria, no weakness or numbness in any of his extremity no change in vision or in speech. Biopsy result is still pending at this time. on 02/17/2019 patient was seen and examined on the medical floor he is alert and oriented 3 in no apparent distress he is complaining of burning with urination urine analysis ordered, he is still complaining of unsteadiness with his gait, otherwise there is no complaints there is no fever or chills no headache or dizziness no chest pain no shortness of breath no cough no nausea or vomiting no abdominal pain no diarrhea On 02/18/2019 patient alert and oriented. With intermittent confusion at times. Awaiting final pathology for further plan of care in regards to possible hospice. Patient remains on IV Zosyn for pneumonia. Pulmonary and oncology services are following. At this time patient denies chest pain or shortness of breath. Patient denies nausea vomiting or diarrhea. 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 nurse practitioner for oncology service is to have family meeting today to discuss plan of care in regards to possible hospice. social work and case management following. Awaiting family decision Objective - Vital Signs Vital signs: Vital Signs Temp 97.9 F 02/19/19 04:04 Pulse 94 02/19/19 09:23 Resp 20 02/19/19 09:23 BP 138/79 02/19/19 04:04 Pulse Ox 94 L 02/19/19 09:07 Intake & Output 02/18/19 02/19/19 02/19/19 18:59 06:59 18:59 Intake Total 200 730 Balance 200 730 Weight 63.2 kg Intake: Intake, IV Titration 200 100 Amount Piperacillin-Tazobactam 3 100 100 .375 gm In Sodium Chloride 0.9% 100 ml @ 25 mls/hr IVPB Q[facility]HR [facility] Rx# :[id number] Potassium Chloride 10 meq 100 In Water For Injection 1 100ml.bag @ 100 mls/hr IVPB Q1HR [facility] Rx#: [id number] Oral 630 Other: Voiding Method Urinal Urinal Urinal Diaper Diaper Diaper # Voids 1 # Bowel Movements 0 - Exam Head normocephalic Neck supple Lungs diminished bilaterally Heart regular rate and rhythm S1-S2, no rub or gallop Abdomen is soft nontender nondistended positive bowel sounds no hepatosplenomegaly Extremities no edema Neuro alert and orientated to 2. confusion at times large ,abnormal growths noted to right shoulder with serosanguineous drainage - Labs CBC & Chem 7: 02/19/19 07:29 02/19/19 07:29 Labs: Abnormal Lab Results - Last 24 Hours (Table) 02/16/19 02/19/19 02/19/19 Range/Units 07:06 07:29 07:29 WBC 15.4 H (3.8-10.6) k/uL Hgb 12.2 L (13.0-17.5) gm/dL MCHC 30.6 L (31.0-37.0) g/dL RDW 16.4 H (11.5-15.5) % Neutrophils # 12.5 H (1.3-7.7) k/uL Sodium 148 H (137-145) mmol/L Chloride 112 H (98-107) mmol/L BUN 27 H (9-20) mg/dL Calcium 10.9 H (8.4-10.2) mg/dL Albumin 3.0 L (3.5-5.0) g/dL Total PSA 10.7 H (<=4.0) ng/mL Assessment and Plan Assessment: 1. Increased weakness and altered mental status likely secondary to pneumonia infection. Head CT completed showing no acute intracranial hemorrhage, mass effect or midline shift seen. Lactic acid 2. 9 repeat ordered per protocol 2. Left upper lobe pneumonia with elevated lactic acid sepsis present on admission. Chest x-ray completed showing bibasilar infiltrate and small effusion with large area of consolidation left upper lobe. Correlate for pneumonia. Underlying neoplasm not excluded. Sputum culture ordered. Patient started on azithromycin and Rocephin. Pulmonary service is consulted. CT of chest has been ordered per pulmonary services. antibiotics have been switched to Zosyn per infectious disease 3. Large growth noted to right shoulder with drainage. Per infectious disease right upper arm and shoulder area skin lesion with fungating wound highly suspicious for malignancy. Cultures have been ordered general surgeon consult for possible biopsy to rule out malignancy. Local wound care with Aquacel silver dressing to be changed every 48 hours. Per surgical services patient currently refusing biopsy of right shoulder mass. 4. Diffuse thoracic and extrathoracic edema the, fungating mass in the right sh oulder area possible mass in left lung base. Per pulmonary rule out lymphoma versus metastatic carcinoma. Per pulmonary IR has been consulted for biopsy the right axillary nodule. Biopsy completed. 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 History of COPD 6. History of angina 7. History of hyperlipidemia. Statin resumed 8. History of hypothyroidism. Continue Synthroid. TSH level 2.490 9. History of tinnitus 10. 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 11. Hypokalemia. Potassium 3.4 replacement protocol. Resolved DVT prophylaxis heparin. GI prophylaxis Pepcid Pulmonary, oncology, surgical services and infectious disease service following antibiotics Zosyn social work and case management following Oncology service to have family meeting to discuss plan of care and possible hospice care awaiting family decision I performed an examination of the patient and discussed their management with the Nurse Practitioner. I have reviewed the Nurse Practitioner's notes and agree with the documented findings and plan of care
[2019-02-20] MEDS: LEVOTHYROXINE 75 MCG TAB PO SCH (05:58)
[2019-02-20] MEDS: MULTIVITAMINS, THERA 1 EACH TAB PO SCH (08:45)
[2019-02-20] MEDS: FAMOTIDINE 20 MG TAB PO SCH (08:45)
[2019-02-20] MEDS: PIPERACILLIN-TAZOBACTAM 3.375 GM in SODIUM CHLORIDE 0.9% 100 ML IVPB SCH (08:45)
[2019-02-20] MEDS: EZETIMIBE 10 MG TAB PO SCH (08:45)
[2019-02-20 09:27] LABS: Anisocytosis Slight; Basophils # (A) 0.1 k/uL (0-0.2); Basophils % (A) 1 %; Eosinophils # (A) 0.7 k/uL (0-0.7); Eosinophils % (A) 4 %; HCT 40.7 % (39.0-53.0); Hypochromasia Moderate; Lymphocytes # (A) 1.4 k/uL (1.0-4.8); Lymphocytes % (A) 7 %; MCHC 29.6 g/dL (31.0-37.0); MCV 84.3 fL (80.0-100.0); Mean Platelet Volume 8.4; Monocytes # (A) 0.7 k/uL (0-1.0); Monocytes % (A) 4 %; Neutrophils # (A) 16.1 k/uL (1.3-7.7); Neutrophils % (A) 84 %; Platelet Count 198 k/uL (150-450); RBC 4.82 m/uL (4.30-5.90); WBC 19.2 k/uL (3.8-10.6)
[2019-02-20] MEDS: IPRATROPIUM-ALBUTEROL 3 ML NEB INHALATION SCH ×3 (09:32→16:24)
[2019-02-20 09:39] LABS: Albumin 3.1 g/dL (3.5-5.0); Calcium 10.8 mg/dL (8.4-10.2); Potassium 3.3 mmol/L (3.5-5.1); Total Protein 6.6 g/dL (6.3-8.2)
[2019-02-20] MEDS: HEPARIN SODIUM,PORCINE 5,000 UNIT/ML 1 ML VIAL SQ SCH (11:41)
[2019-02-20 11:55] VITALS: BP 128/78; RESP 20; TEMP 96.5
--- NOTE | 2019-02-20 15:13 | P.DS ---
Providers Date of admission: 02/11/19 12:04 Expected date of discharge: 02/20/19 Attending physician: Ravinder Davis Consults: 02/11/19 12:34 Consult Physician Routine Consulting Provider: Sudheer Oliveira Consult Reason/Comments: Pneumonia Do you want consulting provider notified?: Yes 02/11/19 14:20 Consult Physician Routine Consulting Provider: Jim Delvalle Consult Reason/Comments: growth draining from right shoulder Do you want consulting provider notified?: Yes 02/12/19 08:47 Consult Physician Routine Consulting Provider: Roland Lacey Consult Reason/Comments: biopsy shoulder wound Do you want consulting provider notified?: Yes 02/15/19 09:43 Consult Physician Routine Consulting Provider: Samuel Lin Consult Reason/Comments: probable cancer Do you want consulting provider notified?: Yes Primary care physician: Ravinder Davis [facility] Course: discharge diagnosis Terminal diagnosis: B-cell lymphoma patient will be discharged to [facility] and opened up under [facility] hospice care 1. Increased weakness and altered mental status likely secondary to pneumonia infection. Head CT completed showing no acute intracranial hemorrhage, mass effect or midline shift seen. Lactic acid 2. 9 repeat ordered per protocol 2. Left upper lobe pneumonia with elevated lactic acid sepsis present on admission. Chest x-ray completed showing bibasilar infiltrate and small effusion with large area of consolidation left upper lobe. Correlate for pneumonia. Underlying neoplasm not excluded. Sputum culture ordered. Patient started on azithromycin and Rocephin. Pulmonary service is consulted. CT of chest has been ordered per pulmonary services. antibiotics have been switched to Zosyn per infectious disease 3. Large growth noted to right shoulder with drainage. Per infectious disease right upper arm and shoulder area skin lesion with fungating wound highly suspicious for malignancy. Cultures have been ordered general surgeon consult for possible biopsy to rule out malignancy. Local wound care with Aquacel silver dressing to be changed every 48 hours. Per surgical services patient currently refusing biopsy of right shoulder mass. 4. Diffuse thoracic and extrathoracic edema the, fungating mass in the right shoulder area possible mass in left lung base. Per pulmonary rule out lymphoma versus metastatic carcinoma. Per pulmonary IR has been consulted for biopsy the right axillary nodule. Biopsy completed. 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 History of COPD 6. History of angina 7. History of hyperlipidemia. Statin resumed 8. History of hypothyroidism. Continue Synthroid. TSH level 2.490 9. History of tinnitus 10. 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 11. Hypokalemia. Potassium 3.4 replacement protocol. Resolved hospital course This is an 88-year-old male patient who presented to the hospital with complaints of generalized weakness with increased altered mental status changes. Patient does report he's had a cough over the past few days patient is a poor historian. No family at bedside. History obtained from records. Patient does have past medical history of chest pain, COPD, GERD, hyperlipidemia, osteoarthritis, pneumonia thyroid disorder. Patient also has abnormal growths to right shoulder with drainage. Patient reports he's had this for [address] completed showing no acute intracranial hemorrhage, mass effect or midline shift seen. Chest x-ray completed showing bibasilar infiltrate and small effusion with large area of consolidation left upper lobe. Correlate for pneumonia underlying neoplasm not excluded. Patient started on Rocephin and azithromycin for pneumonia. Sputum culture ordered. Lactic acid elevated at 2.9. At this time patient is resting comfortably in bed. Patient denies chest pain or shortness of breath. Patient denies nausea vomiting or diarrhea. Patient denies any urinary burning or frequency On 02/12/2019 patient is alert and oriented 2 confused at times resting comfortably bed is at bedside. Dr. cortes has been consulted for surgical consult in regards to right shoulder abscess for possible biopsy. CT of chest also ordered per pulmonary services. Per patient's requesting patient may be a DO NOT RESUSCITATE. Patient still having productive cough. Patient denies chest pain. Patient denies nausea vomiting or diarrhea. patient denies any urinary burning or frequency On 02/13/2019 patient is alert slightly confused in no apparent distress, had poor oral intake today, otherwise he denies any complaints there is no fever or chills no headache or dizziness no chest pain no shortness of breath, no nausea or vomiting no abdominal pain no diarrhea and no urinary symptoms On 02/14/2019 patient remains slightly confused. Patient underwent lymph node biopsy ultrasound. Awaiting culture. Patient still having non productive cough. At this time patient denies chest pain or shortness of breath. Patient denies nausea vomiting or diarrhea. Patient denies any urinary burning or frequency on 02/15/2019 patient is resting comfortably in bed. pathology on biopsy still pending. antibiotics switched to Zosyn per pulmonary. Oncology services have been consulted.at this time patient denies chest pain. Patient denies nausea vomiting or diarrhea. Patient denies any urinary burning or frequency On 02/16/2019 patient was seen and examined on the medical floor he is alert and oriented 3 in no apparent distress he is complaining of unsteadiness in his gait otherwise he denies any complaints there is no fever or chills no headache or dizziness no chest pain no shortness of breath no cough no nausea or vomiting no abdominal pain no diarrhea no burning with urination no frequency or urgency and no hematuria, no weakness or numbness in any of his extremity no change in vision or in speech. Biopsy result is still pending at this time. on 02/17/2019 patient was seen and examined on the medical floor he is alert and oriented 3 in no apparent distress he is complaining of burning with urination urine analysis ordered, he is still complaining of unsteadiness with his gait, otherwise there is no complaints there is no fever or chills no headache or dizziness no chest pain no shortness of breath no cough no nausea or vomiting no abdominal pain no diarrhea On 02/18/2019 patient alert and oriented. With intermittent confusion at times. Awaiting final pathology for further plan of care in regards to possible hospice. Patient remains on IV Zosyn for pneumonia. Pulmonary and oncology services are following. At this time patient denies chest pain or shortness of breath. Patient denies nausea vomiting or diarrhea. 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 nurse practitioner for oncology service is to have family meeting today to discuss plan of care in regards to possible hospice. social work and case management following. Awaiting family decision On 02/20/2019 patient is resting comfortably in bed does not appear in distress. 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 Decision made to discharge patient to [facility] and open up under [facility] hospice care upon arrival. Per social work patient will be discharged likelihood today to [facility]. I performed an examination of the patient and discussed their management with the Nurse Practitioner. I have reviewed the Nurse Practitioner's notes and agree with the documented findings and plan of care Patient Condition at Discharge: Stable Plan - Discharge Summary Discharge Rx Participant: No New Discharge Prescriptions: No Action Ezetimibe [Zetia] 10 mg PO DAILY Levothyroxine Sodium [Synthroid] 75 mcg PO DAILY Discharge Medication List Ezetimibe [Zetia] 10 mg PO DAILY 06/11/15 [History] Levothyroxine Sodium [Synthroid] 75 mcg PO DAILY 06/11/15 [History] Follow up Appointment(s)/Referral(s): Ravinder Davis MD [Primary Care Provider] - 1-2 days
[2019-02-20 16:33] VITALS: PULSE 97
== END 2019-02-20 18:05 | disposition hospice, home (50) | DRG 853 ==
LOC: EC 09:43 → 3NMEDONC 12:04 → 4SSUR 17:06 → 3SCARD 17:21 → 3NMEDONC 02-15 20:56 → 5NMEDONC 02-17 07:19
PROVIDERS: ADMIT Internal Medicine; ATTEND Internal Medicine
PROC: 07B53ZX Excision of Right Axillary Lymphatic, Percutaneous Approach, Diagnostic (ICD-10-PCS; principal; 2019-02-13)
DX: A41.9 Sepsis, unspecified organism (principal); G93.41 Metabolic encephalopathy; J15.1 Pneumonia due to Pseudomonas; J44.0 Chronic obstructive pulmonary disease with (acute) lower respiratory infection; J98.11 Atelectasis; E44.0 Moderate protein-calorie malnutrition; M84.58XA Pathological fracture in neoplastic disease, other specified site, initial encounter for fracture; C83.39 Diffuse large B-cell lymphoma, extranodal and solid organ sites; D50.9 Iron deficiency anemia, unspecified; E03.9 Hypothyroidism, unspecified; Z68.23 Body mass index [BMI] 23.0-23.9, adult; E78.5 Hyperlipidemia, unspecified; E87.6 Hypokalemia; G47.33 Obstructive sleep apnea (adult) (pediatric); H93.11 Tinnitus, right ear; K21.9 Gastro-esophageal reflux disease without esophagitis; K59.09 Other constipation; M19.90 Unspecified osteoarthritis, unspecified site; Z51.5 Encounter for palliative care; Z66 Do not resuscitate; Z77.090 Contact with and (suspected) exposure to asbestos; Z79.890 Hormone replacement therapy; Z79.899 Other long term (current) drug therapy; Z87.01 Personal history of pneumonia (recurrent); Z87.891 Personal history of nicotine dependence
CPT/HCPCS: 36415; 38505; 70450; 71045; 71260; 76604; 76942; 80053; 81001; 82140; 82550; 82607; 82728; 82747; 83540; 83550; 83605; 83615; 83735; 84132; 84153; 84443; 84484; 85025; 85610; 87040; 87070; 87077; 87186; 87205; 88305; 88341; 88342; 93005; 94640; 94760; 96361; 96365; 96366; 96367; 99285